=== PATIENT | male | born 1975 | race Two or more races ===

== ENCOUNTER 2020-04-18 16:51 | Outpatient (REF) | payer OTHER, SELFPAY ==
[2020-04-18 17:34] LABS: MANUAL DIFF FLAG NO
[2020-04-18 17:45] LABS: Basophils Percent Auto 0.5 % (0-2); Eosinophils Absolute Auto 0.3 X10*3/uL (0.0-0.4); Eosinophils Percent Auto 4.4 % (0-4); Hematocrit 41.3 % (42-52); Hemoglobin 13.2 g/dl (14.0-18.0); Imm Gran Abs Auto 0.01 X10*3/uL (0.00-0.03); Imm Gran Pct Auto 0.2 % (0.0-0.4); Lymphocytes Absolute Auto 1.4 X10*3/uL (1.2-4.9); Lymphocytes Percent Auto 24.8 % (20-40); Mean Corpuscular Volume 87.7 fL (80-98); Mean Platelet Volume 10.4 fL (9.4-12.4); Monocytes Absolute Auto 0.5 X10*3/uL (0.1-1.2); Monocytes Percent Auto 9.4 % (2-11); Neutrophils Absolute Auto 3.4 X10*3/uL (2.0-8.3); Neutrophils Percent Auto 60.7 % (45-73); Platelet Count 226 X10*3/uL (160-400); Red Blood Count 4.71 X10*6/uL (4.60-5.80); Red Cell Distribution Width 12.7 % (11.0-16.0); White Blood Count 5.6 X10*3/uL (4.8-10.8)
[2020-04-18 18:02] LABS: Estimated Average Glucose 174 mg/dL; Hemoglobin A1c % 7.7 %
[2020-04-18 18:11] LABS: Alanine Aminotransferase 27 U/L (0-40); Albumin Level 4.1 g/dL (3.5-5.0); Alkaline Phosphatase 50 U/L (39-117); Anion Gap 13 (12-20); Aspartate Amino Transferase 25 U/L (5-37); Bilirubin Total 0.5 mg/dL (0.0-1.0); Blood Urea Nitrogen 9 mg/dL (9-16); Calcium 8.8 mg/dL (8.4-10.2); Carbon Dioxide 25 mmol/L (22-29); Chloride 103 mmol/L (96-108); Estimated Glomerular Filt Rate 56; Glucose Random 166 mg/dL (60-115); Potassium 4.2 mmol/l (3.3-5.1); Sodium 137 mmol/L (135-145); Total Protein 7.2 g/dL (6.5-8.0)
[2020-04-18 18:12] LABS: B Type Natriuretic Peptide 228 pg/mL (<100)
[2020-04-21 13:52] LABS: Alpha 1 Anti-trypsin 133 mg/dL (83-199)
== END 2020-04-18 16:52 | disposition home or self-care (01) ==
LOC: HO.LAB 16:51
PROVIDERS: PCP Internal Medicine; Visit Provider Internal Medicine
DX: J45.41 Moderate persistent asthma with (acute) exacerbation (principal); R73.03 Prediabetes; I42.9 Cardiomyopathy, unspecified; G47.33 Obstructive sleep apnea (adult) (pediatric); R05 Cough
CPT/HCPCS: 36415; 80053; 82103; 83036; 83880; 85025

== ENCOUNTER 2020-05-22 15:30 | Outpatient (REF) | payer OTHER, SELFPAY ==
--- NOTE | 2020-05-22 16:11 | XR_ITS ---
EXAMINATION: XR CHEST CLINICAL INFORMATION: Bronchitis COMPARISON: None TECHNIQUE: 2 views of the chest were obtained. FINDINGS: No significant abnormality is noted involving the heart, lungs, mediastinum, bony thorax or soft tissues. XR/XR chest 2V IMPRESSION: Unremarkable chest examination.
== END 2020-05-22 15:31 | disposition home or self-care (01) ==
LOC: HO.XRAY 15:30
PROVIDERS: PCP Internal Medicine; Visit Provider Internal Medicine
DX: G47.33 Obstructive sleep apnea (adult) (pediatric) (principal); J40 Bronchitis, not specified as acute or chronic; Z99.89 Dependence on other enabling machines and devices
CPT/HCPCS: 71046; 99202

== ENCOUNTER 2020-06-01 11:43 | Outpatient (REF) | payer OTHER, SELFPAY ==
[2020-06-01 13:10] LABS: MANUAL DIFF FLAG NO
[2020-06-01 13:37] LABS: Basophils Absolute Auto 0.1 X10*3/uL (0.0-0.2); Basophils Percent Auto 0.7 % (0-2); Eosinophils Absolute Auto 0.2 X10*3/uL (0.0-0.4); Eosinophils Percent Auto 2.4 % (0-4); Hemoglobin 13.1 g/dl (14.0-18.0); Imm Gran Abs Auto 0.03 X10*3/uL (0.00-0.03); Imm Gran Pct Auto 0.4 % (0.0-0.4); Lymphocytes Percent Auto 27.3 % (20-40); Mean Corpuscular HGB Conc 32.8 g/dl (31.0-36.0); Mean Corpuscular Hemoglobin 28.4 pg (27.0-33.0); Mean Corpuscular Volume 86.8 fL (80-98); Mean Platelet Volume 10.8 fL (9.4-12.4); Monocytes Absolute Auto 0.8 X10*3/uL (0.1-1.2); Monocytes Percent Auto 10.9 % (2-11); Neutrophils Absolute Auto 4.3 X10*3/uL (2.0-8.3); Neutrophils Percent Auto 58.3 % (45-73); Platelet Count 290 X10*3/uL (160-400); Red Blood Count 4.61 X10*6/uL (4.60-5.80); Red Cell Distribution Width 14.5 % (11.0-16.0); White Blood Count 7.4 X10*3/uL (4.8-10.8)
[2020-06-01 13:41] LABS: Alanine Aminotransferase 29 U/L (0-40); Albumin Level 4.4 g/dL (3.5-5.0); Alkaline Phosphatase 45 U/L (39-117); Anion Gap 14 (12-20); Aspartate Amino Transferase 22 U/L (5-37); Bilirubin Total 0.4 mg/dL (0.0-1.0); Blood Urea Nitrogen 12 mg/dL (9-16); Calcium 9.2 mg/dL (8.4-10.2); Carbon Dioxide 27 mmol/L (22-29); Chloride 102 mmol/L (96-108); Estimated Glomerular Filt Rate > 60; Glucose Random 126 mg/dL (60-115); Potassium 4.2 mmol/l (3.3-5.1); Sodium 139 mmol/L (135-145); Total Protein 7.5 g/dL (6.5-8.0)
[2020-06-01 13:43] LABS: Creatinine Urine 348.88 mg/dL; Microalbum/Creatinine Ratio Ur 25.5 ug/mg cr
[2020-06-01 13:44] LABS: Estimated Average Glucose 177 mg/dL; Hemoglobin A1c % 7.8 %
== END 2020-06-01 11:44 | disposition home or self-care (01) ==
LOC: HO.LAB 11:43
PROVIDERS: PCP Internal Medicine; Visit Provider Internal Medicine
DX: E11.22 Type 2 diabetes mellitus with diabetic chronic kidney disease (principal); N18.9 Chronic kidney disease, unspecified; I42.9 Cardiomyopathy, unspecified
CPT/HCPCS: 36415; 80053; 82043; 83036; 85025

== ENCOUNTER → 2020-06-14 10:42 | Outpatient (BNVA) | payer OTHER, SELFPAY | PROVIDERS: PCP Internal Medicine; Visit Provider Surgery | DX: K43.2 Incisional hernia without obstruction or gangrene (principal) | CPT/HCPCS: 99202 ==

== ENCOUNTER → 2020-06-18 15:12 | Outpatient (BNVA) | payer OTHER, SELFPAY | PROVIDERS: PCP Internal Medicine; Visit Provider Internal Medicine Cardiovascular Disease | DX: Z01.810 Encounter for preprocedural cardiovascular examination (principal); I42.8 Other cardiomyopathies; I50.9 Heart failure, unspecified; K46.9 Unspecified abdominal hernia without obstruction or gangrene; G47.33 Obstructive sleep apnea (adult) (pediatric); Z79.899 Other long term (current) drug therapy; Z99.89 Dependence on other enabling machines and devices | CPT/HCPCS: 93005; 99212 ==

== ENCOUNTER 2020-12-29 06:56 | Emergency (ER) | payer OTHER, SELFPAY ==
--- NOTE | ~2020-12-29 | XR_ITS ---
EXAMINATION: XR RIBS, LEFT CLINICAL INFORMATION: Pain COMPARISON: No prior exam available. TECHNIQUE: Chest frontal, 4 left rib obliques FINDINGS: RIBS: Skeletal structures are normal. LUNGS AND SUDHEER: Both lungs are clear. PLEURA: Normal. Costophrenic angles are sharp, no pneumothorax. HEART: The heart is normal in size. MEDIASTINUM: The mediastinum is within normal limits.. XR/XR ribs LT min 3V w CXR1V IMPRESSION: 1. No radiographic evidence of rib fracture. 2. No radiographic evidence of acute cardiopulmonary disease.
[2020-12-29 07:02] VITALS: BP 151/90; PULSE 102; RESP 18; TEMP 36.6; O2SAT 98; BMI 34.9
[2020-12-29 07:53] VITALS: BP 143/92; PULSE 102; RESP 20; TEMP 36.7; O2SAT 99
--- NOTE | 2020-12-29 08:09 | ED_ITS ---
HPI - General Adult General Chief complaint: General Medical Stated complaint: Rib pain Time Seen by Provider: 12/29/20 08:09 Source: patient Mode of arrival: ambulatory Limitations: no limitations History of Present Illness HPI narrative: 45-year-old male came in with left-sided chest wall pain, patient was playing and sliding on no water and had his left side of his chest about week ago, patient has been having left-sided chest wall pain with movement and taking a deep breath. No light headedness, no shortness of breath. Related Data Home Medications Medication Instructions Recorded Confirmed albuterol sulfate 90 mcg/actuation 2 puff INHALATION Q6H PRN 05/22/20 08/22/20 aerosol inhaler carvedilol 25 mg tablet 37.5 mg PO BID tab 05/22/20 08/22/20 fluticasone propionate 110 1 puff INHALATION BID 05/22/20 08/22/20 mcg/actuation HFA aerosol inhaler furosemide 40 mg tablet 40 mg PO DAILY 05/22/20 08/22/20 omeprazole 20 mg capsule,delayed 20 mg PO DAILY 05/22/20 08/22/20 release aspirin 81 mg tablet,delayed 81 mg PO DAILY 06/18/20 08/22/20 release prednisone 20 mg tablet 20 mg PO DAILY PRN tab 06/18/20 06/18/20 ipratropium-albuterol ml INHALATION 08/22/20 montelukast 1 tab PO DAILY 08/22/20 08/22/20 spironolactone 1 tab PO DAILY 08/22/20 08/22/20 Previous Rx's Medication Instructions Recorded ivabradine 5 mg tablet 5 mg PO BID #60 tab 06/18/20 empagliflozin 10 mg tablet 10 mg PO DAILY #30 tab 09/05/20 sacubitril 49 mg-valsartan 51 mg 1 tab PO BID 90 Days #180 tab 10/31/20 tablet Allergies Allergy/AdvReac Type Severity Reaction Status Date / Time No Known Allergies Allergy Verified 08/22/20 12:08 Review of Systems Review of Systems: All other systems are reviewed and are negative Constitutional: Reports as per HPI and Reports no additional constitutional complaints Eyes: Reports as per HPI and Reports no additional eye complaints Reports system reviewed and no additional complaints, except as documented Cardiovascular: Reports as per HPI and Reports no additional cardiovascular complaints Respiratory: Reports as per HPI and Reports no additional respiratory complaints Gastrointestinal: Reports as per HPI and Reports no additional gastrointestinal complaints Genitourinary: Reports no additional female genitourinary complaints Musculoskeletal: Reports no additional musculoskeletal complaints Skin/Breast: Reports system reviewed and no additional complaints, except as docu Psychiatric: Reports no additional psychiatric complaints Endocrine: Reports no additional endocrine complaints Hematologic/Lymphatic: Reports no additional hematologic/lymphatic complaints Allergic/Immunologic: Reports no additional allergic/immunologic complaints Reports system reviewed and no additional complaints, except as documented and Reports Abnormal speech present [facility] Past Medical History Medical History Anxiety Asthma Bronchitis Cardiomyopathy CHF (congestive heart failure) GERD (gastroesophageal reflux disease) History of pneumonia Incisional hernia ARCELIA on CPAP PTSD (post-traumatic stress disorder) Surgical History History of esophagogastroduodenoscopy (EGD) History of laparoscopic appendectomy History of umbilical hernia repair Hx of endoscopy Family History Family History Father Diabetes CVD (cardiovascular disease) HTN (hypertension) Mother Diabetes Social History Social History Are you a primary ambulatory care coordinator to a significant other at home: No Advance Directives: Yes Advance Directives Information Provided: No Advance Directives on File: No Physical Exam Vital Signs: Vital Signs: Last Vital Signs Temp 98.0 F 12/29/20 07:53 Pulse 102 H 12/29/20 07:53 Resp 20 12/29/20 07:53 BP 143/92 H 12/29/20 07:53 Pulse Ox 99 12/29/20 07:53 Body Mass Index 34.9 Vital signs have been reviewed as appeared to be correct. Blood pressure elevated. Heart rate slightly elevated. Respiration rate normal. Temperature normal. Oxygen saturation normal. Appearance: Alert. Oriented X3. No acute distress. Head: Normal external exam. Normocephalic. Atraumatic. No Vazquez signs noted. No raccoon eyes noted Eyes: PERRLA. EOMI. Conjunctiva and sclera normal. Eyelids normal. ENT: TM's Normal. Pharynx normal. Uvula midline. Moist mucous membranes. No trismus noted. No drooling noted. No muffled voice noted. Neck: Normal inspection. Neck supple. FROM. No adenopathy. Thyroid Normal. No meningeal signs. No neck mass noted. CVS: Normal heart rate and rhythm. Heart sound normal. No murmurs noted. Pulses normal throughout. Respiratory: No respiratory distress. Painless inspiration. Breath sounds normal. No wheezes/rales/rhonchi noted. Point of tenderness which is reproducible at the mid axillary line over 9th, 10th, 11th rib. No step-off or deformity.. No accessory muscle usage noted or decreased air movement noted. Abdomen: Soft and nontender. Bowel sounds normal in all 4 quadrants. No distention noted. No organomegaly noted. No visible injury noted. Back: No CVA tenderness. Full range of motion noted. Skin: Skin warm and dry. Normal skin color. Normal skin turgor. No rashes/lesions/lacerations noted. Extremities: No lower extremity edema. Extremities exhibit normal range of motion. Extremities nontender. Neuro: Oriented X 3. No motor deficit. No sensory deficit. Reflexes normal. Course Course Course Narrative: Assessment and plan. 45-year-old male with left-sided chest wall pain after hurting his left chest week ago. Chest x-ray showing no fracture or pneumothorax. Physical exam and chest x-ray are more consistent with muscular/rib contusion. As recommended to the patient to use NSAIDs for pain control. Medical Decision Making Imaging Data Chest x-ray: Radiologist's impression: 1. No radiographic evidence of rib fracture. 2. No radiographic evidence of acute cardiopulmonary disease. Discharge Plan Discharge Prescriptions: No Action Jardiance 10 mg tablet 10 mg PO DAILY Qty: 30 RF: 5 Entresto 49-51 mg tablet 1 tab PO BID 90 Days Qty: 180 RF: 1 ipratropium-albuterol 0.5 mg-3 mg(2.5 mg base)/3 mL solution for nebulization inhalation RF: 0 spironolactone 25 mg tablet 1 tab PO DAILY RF: 0 montelukast 10 mg tablet 1 tab PO DAILY RF: 0 carvedilol 25 mg tablet 37.5 mg PO BID RF: 0 furosemide [Lasix] 40 mg tablet 40 mg PO DAILY RF: 0 albuterol sulfate [ProAir HFA] 90 mcg/actuation HFA aerosol inhaler 2 puff inhalation Q6H PRN (Reason: Wheezing) RF: 0 Flovent HFA 110 mcg/actuation HFA aerosol inhaler 1 puff inhalation BID RF: 0 omeprazole 20 mg capsule,delayed release(DR/EC) 20 mg PO DAILY RF: 0 prednisone 20 mg tablet 20 mg PO DAILY PRN (Reason: Vertigo) RF: 0 aspirin [Adult Low Dose Aspirin] 81 mg tablet,delayed release (DR/EC) 81 mg PO DAILY RF: 0 Corlanor 5 mg tablet 5 mg PO BID Qty: 60 RF: 1
== END 2020-12-29 08:25 | disposition home or self-care (01) ==
PROVIDERS: Emergency Provider Emergency Medicine; PCP Internal Medicine
DX: S20.212A Contusion of left front wall of thorax, initial encounter (principal); I50.9 Heart failure, unspecified; J45.909 Unspecified asthma, uncomplicated; Z79.899 Other long term (current) drug therapy; X58.XXXA Exposure to other specified factors, initial encounter; Y93.9 Activity, unspecified; Y92.9 Unspecified place or not applicable; Y99.9 Unspecified external cause status
CPT/HCPCS: 71101; 99283; 99284

== ENCOUNTER → 2021-01-04 08:28 | Outpatient (BNVA) | payer SELFPAY | PROVIDERS: PCP Internal Medicine; Visit Provider Internal Medicine | DX: Z02.79 Encounter for issue of other medical certificate (principal) ==

== ENCOUNTER → 2021-01-28 15:00 | Outpatient (BNVA) | payer OTHER, SELFPAY | PROVIDERS: PCP Internal Medicine; Referring Provider Internal Medicine; Visit Provider Surgery | DX: K43.2 Incisional hernia without obstruction or gangrene (principal); I42.9 Cardiomyopathy, unspecified | CPT/HCPCS: 99202; 99212 ==

== ENCOUNTER → 2021-02-13 13:09 | Outpatient (BNVA) | payer OTHER, SELFPAY | PROVIDERS: Referring Provider Internal Medicine; Visit Provider Nurse Practitioner Family | DX: Z01.810 Encounter for preprocedural cardiovascular examination (principal); I42.9 Cardiomyopathy, unspecified; I50.9 Heart failure, unspecified; I35.0 Nonrheumatic aortic (valve) stenosis; G47.33 Obstructive sleep apnea (adult) (pediatric); R73.03 Prediabetes; Z99.89 Dependence on other enabling machines and devices; Z79.4 Long term (current) use of insulin; Z79.899 Other long term (current) drug therapy | CPT/HCPCS: 93005; 99212 ==

== ENCOUNTER → 2021-02-15 07:22 | Outpatient (REF) | payer OTHER, SELFPAY ==
--- NOTE | 2021-02-15 07:29 | CA_ITS ---
Transthoracic Echocardiogram Patient (Last, First, Middle): Pavan Quiroz, Gender: Male Date of : 1975 Age: 45 Procedure Date: 02/15/2021 Procedure Type: Transthoracic Echocardiogram Location: OP Height: 182.88 cm Weight: 117.94 kg BSA: 2.38 m2 Heart Rate: bpm BP: 130 / 82 mmHg Boat Joiner: LIBBY Referring MD: Michelle Blount RESPIRATORY MANAGER-Baljit Symptoms: I42.9 - Cardiomyopathy, unspecified Study Quality: Fair ECG Rhythm: Sinus Conclusions: - Moderately increased left ventricular cavity size. There is moderately increased left ventricular wall thickness. The left ventricular systolic function is moderately decreased. The visually estimated ejection fraction is between 30-35%. - Normal right ventricular cavity size and systolic function. Findings Left Ventricle Moderately increased left ventricular cavity size. There is moderately increased left ventricular wall thickness. The left ventricular systolic function is moderately decreased. The visually estimated ejection fraction is between 30-35%. There is moderate global hypokinesis. Abnormal diastolic function is noted. Spectral Doppler is indicative of an impaired relaxation filling pattern. E/E prime ratio is <8, consistent with normal filling pressures. Right Ventricle Normal right ventricular cavity size and systolic function. Atria The left atrium is moderately dilated. Aortic Valve Normal aortic valve structure and function. There is no aortic valve stenosis. There is no aortic valve regurgitation. Mitral Valve The mitral valve appears normal. There is mild mitral valve regurgitation. There is no mitral valve stenosis. Pulmonic Valve Normal pulmonic valve structure and function. There is trace pulmonic valve regurgitation. Tricuspid Valve Normal tricuspid valve structure and function. There is trace tricuspid valve regurgitation. Tricuspid regurgitation envelope is inadequate for calculation of right ventricular systolic pressure. Normal right atrial pressure. Great Vessels All visible segments of the aorta are normal in size. The visualized portions of the pulmonary artery and branches are normal. Venous The inferior vena cava is normal in size and collapses greater than 50% with inspiration. Pericardium/Pleural There is no evidence of pericardial effusion. Prior Study Comparison No significant change compared to prior study dated: 03/13/2020. Measurements 2D Linear Measurements IVSd: 1.36 0.6-0.9/0.6-1.0 cm LVIDd: 6.33 3.9-5.3/4.2-5.9 cm LVIDd Index: 2.66 2.4-3.2/2.2-3.1 cm/m2 LVIDs: 5.14 2.0-3.6 cm LVPWd: 1.36 0.7-1.1 cm Ao Root: 3.80 2.1-3.5 cm LA Diam: 4.60 2.7-3.8/3.0-4.0 cm LAIDs Index: 1.93 1.5-2.3 cm/m2 LV Mass: 507.08 67-162/88-224 g LV Mass Index: 213.06 43-95/49-115 g/m2 LVOT Diam: 2.60 3.0+(-)1.3 cm 2D Systolic Function EF 4C: 37.30 >55% EF 2C: 19.90 >55% EF BiP: 32.40 >55% Mitral Valve MV Pk E: 0.53 MV PK A: 0.75 MV Decel Time: 95.00 E/A: 0.70 E'Lateral: 6.74 E'Medial: 8.38 E/E' Med: 6.30 E/E' Lat: 7.90 PHT: 28.00 MVA PHT: 7.86 Decel Burt: 5.59 Aortic Valve AoV Pk Nik: 1.25 AoV Mn Nik: 0.90 AoV VTI: 0.23 AoV Pk Grad: 6.00 Aov Mn Grad: 4.00 HENRIETTA Cont.VTI: 3.49 LVOT LVOT Pk Nik: 0.91 LVOT Mn Nik: 0.66 LVOT VTI: 0.15 LVOT Pk Grad: 3.00 LVOT Mn Grad: 2.00 LVOT Diam: 2.60 LVOT Area: 5.31 Diastolic Function MV Pk E: 0.53 MV Pk A: 0.75 E/A: 0.70 E'Medial: 8.38 E/E' Med: 6.30 E' Laterial: 6.74 E/E' Lat: 7.90 Right Ventricle TAPSE (mm): 18.00 Tricuspid Valve TR Pk Nik: 1.63 TR Pk Grad: 11.00 RA Press: 3.00 Great Vessels Aorta Ao Root-2D: 3.80 2.0-3.7 cm Pulmonary Valve PV Pk Nik: 1.09 Peak PV Grad: 5.00 Updated in Other Vendor System with Status of Final Eric Woodard MD electronically signed on 02/15/2021 10:15:46 PM with status of Final
[2021-02-15 08:07] LABS: Hematocrit 37.2 % (42-52); Hemoglobin 11.8 g/dl (14.0-18.0); Mean Corpuscular HGB Conc 31.7 g/dl (31.0-36.0); Mean Corpuscular Hemoglobin 27.8 pg (27.0-33.0); Mean Corpuscular Volume 87.5 fL (80-98); Mean Platelet Volume 10.2 fL (9.4-12.4); Platelet Count 288 X10*3/uL (160-400); Red Blood Count 4.25 X10*6/uL (4.60-5.80); Red Cell Distribution Width 14.5 % (11.0-16.0); White Blood Count 8.4 X10*3/uL (4.8-10.8)
[2021-02-15 08:13] LABS: INTERNATIONAL NORM RATIO 0.9 (0.9-1.1)
[2021-02-15 08:26] LABS: Anion Gap 14 (12-20); Blood Urea Nitrogen 19 mg/dL (9-16); Calcium 9.4 mg/dL (8.4-10.2); Carbon Dioxide 23 mmol/L (22-29); Chloride 105 mmol/L (96-108); Estimated Glomerular Filt Rate 58; Glucose Random 168 mg/dL (60-115); Potassium 3.8 mmol/L (3.3-5.1); Sodium 138 mmol/L (135-145)
[2021-02-15 08:28] LABS: B Type Natriuretic Peptide 23 pg/mL (<100)
== END ==
LOC: HO.CARD 07:22
PROVIDERS: Internal Medicine Cardiovascular Disease; PCP Internal Medicine; Visit Provider Nurse Practitioner Family
DX: Z01.810 Encounter for preprocedural cardiovascular examination (principal); I42.9 Cardiomyopathy, unspecified; I50.9 Heart failure, unspecified
CPT/HCPCS: 36415; 80048; 83880; 85027; 85610; 93306

== ENCOUNTER 2021-02-19 06:00 | Day surgery (SDC) | payer OTHER, SELFPAY ==
[2021-02-13 10:06] VITALS: BMI 35.0
[2021-02-19] VITALS (16 sets, daily range): BP systolic 97–148; BP diastolic 46–84; PULSE 67–102; RESP 17–21; TEMP 36.2–36.8; O2SAT 93–100
[2021-02-19 06:15] LABS: Glucose, Whole Blood 162 mg/dL (60-115)
[2021-02-19] MEDS: Lactated Ringers 1,000 ML 100 ML IVCONT (06:30)
--- NOTE | 2021-02-19 07:20 | PC.NURSE ---
dr traore aware pt took asa 81mg po today
--- NOTE | 2021-02-19 07:24 | MHC.SHP ---
Pre-Procedural Eval Section A Date of Service: 02/19/21 Section B Chief Complaint: Incisional hernia Allergies: Allergies Allergy/AdvReac Type Severity Reaction Status Date / Time No Known Allergies Allergy Verified 02/13/21 13:23 Plan I have reviewed the history and physical and performed a pertinent physical examination on my patient. No changes have occurred unless specified.
--- NOTE | 2021-02-19 08:41 | W.PM.OPN ---
Operative Note Operative Note Date of Service: 02/19/21 Narrative: Preop Diagnosis: Recurrent incisional hernia Postop diagnosis: Multiple and recurrent incisional hernias Procedure: Repair of multiple recurrent incisional hernias x4 with large Ventralex mesh, extensive lysis of adhesions Surgeon: Hayden Baer MD guest services assistant: TRACY Call The patient is 45-year-old male who was seen in the office because of a recurrent hernia near the umbilicus. He had a previous laparotomy as a child and has had small incisional hernias in the past which have been repaired. Examination in the office showed a vague hernia at the level umbilicus which was not reducible. In view of symptoms, he wanted to proceed with repair. He understood technique of the procedure as well as the risks, benefits, and alternatives. He was brought to the operating room placed supine on the table under general anesthesia via endotracheal tube. The abdomen is prepped and draped in the usual sterile fashion. A surgical time-out was done. The patient received cefazolin 2 g IV preoperatively. He I infiltrated the planned line of incision using lidocaine 1%. I then made a short incision on the skin 15 at the supraumbilical area down to the infraumbilical area along the previous laparotomy scar. This incision was carried down to the full-thickness skin subcutaneous fat with electrocautery until I was able to visualize the hernia contents. The hernia appeared to contain omental fat. I sharply dissected the sac off of the rest of the subcutaneous layer. I exposed the hernia contents using sharp dissection down to the fascial level. By doing so, I was able to actually visualize four hernias, each 1 by thick band of fascia. I proceeded to define each of these hernias until was able to clearly visualize all fascial margins. I then proceeded to free up all the adhesions from the hernia sac to the fascial edges individually. I then proceeded to divide the a intervening bands. I had to extend the skin incision a little bit inferiorly to allow good exposure of all these hernias. I connected all these for hernias therefore into 1 hernia. The entire defect measured about 4.5 cm in widest diameter. Frank clamps were applied on both sides of the fascia and at the apices. Thefascial edges appeared to appose well. I instrument the underside of the fascia and there was no evidence of any more adherent bowel loops or any adhesions It appeared that we had adequate margins underneath the fascia to apply our mesh. There was no visible bowel loop attached to any of the hernia contents which all consistent of omental fat. After making sure that we had cleared up the fascial edges with careful lysis of adhesions, I proceeded to position a large-sized Ventralex mesh to cover the entire defect. I applied for transfascial sutures using Prolene 2-0 to the Prolene side of the mesh on the 4 quadrants in a parachute fashion. I then tightened the transfascial sutures and there was note of good coverage of the entire defect. There was no evidence of any bowel loop between the mesh and the abdominal wall I then proceeded to reapposed the fascial layer with a running Maxon 1 stitch. The subcutaneous layer was reapposed with Dexon 3-0 interrupted sutures. Skin closure was achieved with Dexon 4-0 subcuticular running stitch. The incision was infiltrated with Marcaine 0.5% for postop analgesia. Dressings were applied and the procedure was completed The patient tolerated the procedure well. There were no complications noted. Initial and final counts of sponges and instruments were correct. Estimated blood loss about 20 cc. The patient was extubated without difficulty and transferred to the recovery room with stable vital signs.
--- NOTE | 2021-02-19 08:50 | PM.OP ---
Brief Operative Note Date of Service: 02/19/21 Pre-op diagnosis: Recurrent incisional hernia Post-op diagnosis: same Procedure: Multiple recurrent incisional hernias Implants: Mesh, Ventralex Surgeon: Hayden Baer MD Anesthesia: GETA Was an Unix Administrator used for this Procedure?: Yes Unix Administrator: Flor Call Estimated blood loss (mL): 20 Pathology: none sent Condition: stable Disposition: PACU
[2021-02-19] MEDS: oxyCODONE HCl Immed Release 5 MG TABLET 10 MG PO ×2 (09:25→20:28)
[2021-02-19 11:44] LABS: Glucose, Whole Blood 296 mg/dL (60-115)
[2021-02-19] MEDS: Montelukast Sodium 10 MG TABLET PO (12:22)
[2021-02-19] MEDS: Insulin Lispro 100 UNIT/ML 3 ML VIAL SUBCUT ×3 (12:23→20:26)
[2021-02-19] MEDS: Furosemide 40 MG TABLET PO (12:23)
[2021-02-19] MEDS: Omeprazole 20 MG CAPSULE.DR PO ×2 (12:23→20:26)
[2021-02-19] MEDS: 0.9 % Sodium Chloride 1,000 ML 80 ML IVCONT (12:23)
[2021-02-19] MEDS: Spironolactone 25 MG TABLET PO (12:23)
[2021-02-19] MEDS: Morphine Sulfate 2 MG/ML CARTRIDGE 4 MG IVPUSH ×3 (12:45→21:58)
--- NOTE | 2021-02-19 14:39 | PC.NURSE ---
Pt presented to floor at 11:30 with scant staining at bottom of dsg. at 1430 pt reported bleeding through dressing. sainginous drainage noted, reinforced with abd pad. will cont to monitor and assess
--- NOTE | 2021-02-19 16:13 | PM.EVENT ---
Event Note Date of Service: 02/19/21 Event Note: Patient seen postop He underwent repair of multiple recurrent incisional hernias earlier today Appears to have good pain control Stable vital signs Abdomen soft Dressings dry Continue pain management Likely DC home tomorrow morning Family updated
[2021-02-19 16:35] LABS: Glucose, Whole Blood 240 mg/dL (60-115)
[2021-02-19 20:22] LABS: Glucose, Whole Blood 203 mg/dL (60-115)
[2021-02-19] MEDS: carvediloL 12.5 MG TABLET 37.5 MG PO (20:26)
[2021-02-19] MEDS: Sacubitril/Valsartan 49/51 1 TAB TABLET PO (20:27)
[2021-02-19] MEDS: Zolpidem Tartrate 5 MG TABLET PO (23:40)
[2021-02-20] MEDS: 0.9 % Sodium Chloride 1,000 ML 80 ML IVCONT (00:08)
[2021-02-20] MEDS: Morphine Sulfate 2 MG/ML CARTRIDGE 4 MG IVPUSH ×5 (02:50→23:31)
[2021-02-20 04:00] VITALS: BP 141/77; PULSE 52; RESP 16; TEMP 36.6; O2SAT 99
[2021-02-20 07:37] LABS: Glucose, Whole Blood 139 mg/dL (60-115)
[2021-02-20] MEDS: Omeprazole 20 MG CAPSULE.DR PO (07:53)
[2021-02-20] MEDS: Furosemide 40 MG TABLET PO (07:53)
[2021-02-20] MEDS: carvediloL 12.5 MG TABLET 37.5 MG PO ×2 (07:53→21:33)
[2021-02-20] MEDS: Montelukast Sodium 10 MG TABLET PO (07:53)
[2021-02-20] MEDS: Spironolactone 25 MG TABLET PO (07:53)
[2021-02-20] MEDS: Sacubitril/Valsartan 49/51 1 TAB TABLET PO ×2 (07:53→21:34)
[2021-02-20 08:00] VITALS: BP 133/75; PULSE 79; RESP 18; TEMP 36.1; O2SAT 98
--- NOTE | 2021-02-20 08:59 | P.PNGS_ITS ---
Subjective Subjective Date of Service: 02/20/21 <Flor Call PA-C - Last Filed: 02/20/21 09:02> 02/20/21 <Hayden Baer MD - Last Filed: 02/20/21 10:14> Interval history: Having some difficulty with pain. OOB and ambulating. <Flor Call PA-C - Last Filed: 02/20/21 09:02> Physical Exam Vital Signs: Vital Signs: Last Vital Signs Temp 96.9 F 02/20/21 08:00 Pulse 79 02/20/21 08:00 Resp 18 02/20/21 08:00 BP 133/75 02/20/21 08:00 Pulse Ox 98 02/20/21 08:00 Body Mass Index 35.0 <RM Masterson Last Filed: 02/20/21 09:02> Const: General: comfortable, no acute distress and alert <Flor Call PA-C - Last Filed: 02/20/21 09:02> Orientation/consciousness: patient oriented x3 <Flor Call PA-C - Last Filed: 02/20/21 09:02> Resp: Effort & Inspection: normal respiratory effort <RM Masterson Last Filed: 02/20/21 09:02> GI: Inspection: Yes distended and Yes incision (dressing intact) <Flor Call PA-C - Last Filed: 02/20/21 09:02> Palpation (GI): Soft to palpation, Tenderness to palpation present (GI), no guarding and not rigid <Flor Call PA-C - Last Filed: 02/20/21 09:02> Percussion: Yes normal to percussion <RM Masterson Last Filed: 02/20/21 09:02> Skin: General skin exam: no rashes or lesions noted <RM Masterson Last Filed: 02/20/21 09:02> Neuro: General: patient oriented x3 <RM Masterson Last Filed: 02/20/21 09:02> Procedures Date of Service Date of Service: 02/20/21 <Flor Call PA-C - Last Filed: 02/20/21 09:02> Progress Note: A&P Assessment and plan (1) Incisional hernia: Status: Acute <Flor Call PA-C - Last Filed: 02/20/21 09:02> Assessment and Plan: No events overnight Describes incisional pain He looks well overall Dressings dry Abdomen soft Likely to be discharged today once with better pain control Seen and examined independently - agree with TRACY Call <Hayden Baer MD - Last Filed: 02/20/21 10:14> (2) CHF (congestive heart failure): Status: Acute <Flor Call PA-C - Last Filed: 02/20/21 09:02> (3) Cardiomyopathy: Status: Acute <Flor Call PA-C - Last Filed: 02/20/21 09:02> (4) Asthma: Status: Acute <Flor Call PA-C - Last Filed: 02/20/21 09:02> Assessment and Plan: 45 year old male admitted s/p incisional hernia repair. VSS. Abd exam benign. DOing ok post operatively. Will reassess later today. If pain better controlled, stable for d/c to homE. Abdominal binder ordered. <Flor Call PA-C - Last Filed: 02/20/21 09:02> Fall Risk Details Current Medications: Current Medications Generic Name Dose Route Start Last Admin Trade Name Freq PRN Reason Stop Dose Admin Acetaminophen 650 mg 02/19/21 08:55 Acetaminophen 325 Mg Tablet PO Q6H PRN Pain, Mild (Pain Scale 1-3) Albuterol Sulfate 2 puff 02/19/21 08:59 Albuterol Sulfate 90 Mcg 8 Gm Inhaler INHALE Q6H PRN Wheezing Albuterol/Ipratropium 3 ml 02/19/21 08:59 Albuterol/Iprat 2.5/0.5mg 3 Ml Ampul.Neb INHALE Q4H PRN Wheezing Carvedilol 37.5 mg 02/19/21 09:00 02/20/21 07:53 Carvedilol 12.5 Mg Tablet PO 37.5 mg BID JOCELYN Administration Protocol Dextrose 25 gm 02/19/21 08:55 Dextrose 50 % 25 Gm/50 Ml Vial IVPUSH Q15M PRN per Hypoglycemia Standing Ord. Protocol Docusate Sodium 100 mg 02/19/21 08:55 Docusate Sodium 100 Mg Capsule PO DAILY PRN Constipation Fluticasone Propionate 1 puff 02/19/21 20:00 02/20/21 07:36 Fluticasone Propionate 100 Mcg Blst.W.Dev INHALE Not Given RBID [facility] Furosemide 40 mg 02/19/21 09:00 02/20/21 07:53 Furosemide 40 Mg Tablet PO 40 mg DAILY JOCELYN Administration Protocol Glucose 15 gm 02/19/21 08:55 Glucose Gel 15 Gm Gel..Gram. PO Q15M PRN per Hypoglycemia Standing Ord. Protocol Insulin Human Lispro 0 unit 02/19/21 11:30 02/20/21 07:28 Insulin Lispro 100 Unit/Ml 3 Ml Vial SUBCUT Not Given QIDACHS [facility] Protocol Ketorolac Tromethamine 15 mg 02/19/21 08:55 Ketorolac Tromethamine 15 Mg/Ml Vial IVPUSH Q6H PRN abdominal pain Montelukast Sodium 10 mg 02/19/21 09:00 02/20/21 07:53 Montelukast Sodium 10 Mg Tablet PO 10 mg DAILY [facility] Administration Morphine Sulfate 4 mg 02/19/21 08:55 02/20/21 07:50 Morphine Sulfate 2 Mg/Ml Cartridge IVPUSH 4 mg Q4H PRN Administration Pain, Severe (Pain Scale 7-10) Protocol Omeprazole 20 mg 02/19/21 09:00 02/20/21 07:53 Omeprazole 20 Mg Capsule.Dr PO 20 mg DAILY JOCELYN Administration Ondansetron HCl 4 mg 02/19/21 08:55 Ondansetron Hcl 4 Mg/2 Ml Vial IVPUSH Q8H PRN Nausea and Vomiting Oxycodone HCl 5 mg 02/19/21 08:55 Oxycodone Hcl Immed Release 5 Mg Tablet PO Q4H PRN Pain, Moderate (Pain Scale 4-6 Oxycodone HCl 10 mg 02/19/21 08:55 02/19/21 20:28 Oxycodone Hcl Immed Release 5 Mg Tablet PO 10 mg Q4H PRN Administration Pain, Severe (Pain Scale 7-10) Sacubitril/Valsartan 1 tab 02/19/21 09:00 02/20/21 07:53 Sacubitril/Valsartan 49/51 1 Tab Tablet PO 1 tab BID JOCELYN Administration Protocol Sodium Chloride 3 ml 02/19/21 16:00 02/20/21 07:28 0.9 % Sodium Chloride Flush 3 Ml Syringe IVFLUSH Not Given QSHIFT JOCELYN Spironolactone 25 mg 02/19/21 09:00 02/20/21 07:53 Spironolactone 25 Mg Tablet PO 25 mg DAILY JOCELYN Administration Protocol <Flor Call PA-C - Last Filed: 02/20/21 09:02> Time Spent With Patient Time: Total time spent is greater than 50% in coordination of care (as documented) at patient's floor/unit and/or counseling patient: <Flor Call PA-C - Last Filed: 02/20/21 09:02> Time with patient: 15 - 24 minutes <RM Masterson Last Filed: 02/20/21 09:02> Quality Stroke Does the patient have a stroke diagnosis?: No <Flor Call PA-C - Last Filed: 02/20/21 09:02> VTE Prior VTE?: No <RM Masterson Last Filed: 02/20/21 09:02> VTE Risk Level:: Surgical - high <RM Masterson Last Filed: 02/20/21 09:02> VTE Device Contraindication: N/A - Device Ordered <RM Masterson Last Filed: 02/20/21 09:02> VTE Drug Contraindication: N/A - Med Ordered <RM Masterson Last Filed: 02/20/21 09:02>
--- NOTE | 2021-02-20 09:22 | HO.POSTANES ---
Post Anesthesia Evaluation Post Anesthesia Evaluation Vital Signs: Vital Signs Temp Pulse Resp BP Pulse Ox 02/20/21 08:00 96.9 F 79 18 133/75 98 02/20/21 04:00 97.9 F 52 16 141/77 H 99 02/19/21 23:38 97.1 F 80 18 140/71 H 99 Anesthesia: General Endotracheal-GETA Mental Status: Awake Pain Control: Satisfactory Nausea/Vomiting: None Hydration: Adequate Anesthesia-Related Issues: No Anes. Related Issues
[2021-02-20 11:09] LABS: Glucose, Whole Blood 220 mg/dL (60-115)
[2021-02-20 11:14] VITALS: BP 132/68; PULSE 65; RESP 19; TEMP 36.1; O2SAT 99
[2021-02-20] MEDS: oxyCODONE HCl Immed Release 5 MG TABLET 10 MG PO ×3 (11:22→22:21)
[2021-02-20] MEDS: Insulin Lispro 100 UNIT/ML 3 ML VIAL SUBCUT ×3 (11:32→21:34)
--- NOTE | 2021-02-20 12:51 | MHC.CM.PN ---
EMR REVIEWED, PT ADMITTED S/P INCISIONAL HERNIA REPAIR, CM MET W/PT WHO IS A&OX4, PT REPORTS HE LIVES W/ROOMMATE, IS INDEPENDENT W/ALL CARE, HAS CPAP AND NEBULIZER AT HOME, NO HOME SERVICES, PT VERIFIES PCP IS [facility], DOES NOT HAVE A HCP, PT PROVIDED EDUCATIONAL INFORMATION AND PT CURRENTLY DECLINING ASSISTANCE TO COMPLETE. D/C PLAN: HOME SELF-CARE, POSSIBLY TODAY, PT WILL SELF--ARRANGE TRANSPORT.
[2021-02-20] MEDS: 0.9 % Sodium Chloride Flush 3 ML SYRINGE IVFLUSH ×2 (14:57→21:36)
[2021-02-20 16:00] VITALS: BP 133/78; PULSE 82; RESP 18; TEMP 36.6; O2SAT 94
[2021-02-20 16:23] LABS: Glucose, Whole Blood 200 mg/dL (60-115)
[2021-02-20 20:00] VITALS: BP 128/95; PULSE 87; RESP 18; TEMP 36.7; O2SAT 96
[2021-02-20] MEDS: Docusate Sodium 100 MG CAPSULE PO (20:04)
[2021-02-20 20:11] LABS: Glucose, Whole Blood 168 mg/dL (60-115)
[2021-02-20] MEDS: Zolpidem Tartrate 5 MG TABLET PO (22:21)
[2021-02-20] MEDS: Acetaminophen 325 MG TABLET 650 MG PO (22:22)
[2021-02-20 23:47] VITALS: BP 138/81; PULSE 90; RESP 18; TEMP 36.1; O2SAT 98
[2021-02-21] MEDS: oxyCODONE HCl Immed Release 5 MG TABLET 10 MG PO ×2 (02:55→07:40)
[2021-02-21 04:00] VITALS: BP 129/70; PULSE 73; RESP 18; TEMP 36.6; O2SAT 96
[2021-02-21] MEDS: Morphine Sulfate 2 MG/ML CARTRIDGE 4 MG IVPUSH ×2 (04:03→08:26)
[2021-02-21] MEDS: Acetaminophen 325 MG TABLET 650 MG PO (06:37)
[2021-02-21 07:13] VITALS: BP 140/68; PULSE 80; RESP 17; TEMP 36.4; O2SAT 96
[2021-02-21] MEDS: Sacubitril/Valsartan 49/51 1 TAB TABLET PO (07:40)
[2021-02-21] MEDS: Omeprazole 20 MG CAPSULE.DR PO (07:40)
[2021-02-21] MEDS: Spironolactone 25 MG TABLET PO (07:40)
[2021-02-21] MEDS: carvediloL 12.5 MG TABLET 37.5 MG PO (07:40)
[2021-02-21] MEDS: Montelukast Sodium 10 MG TABLET PO (07:40)
[2021-02-21] MEDS: Furosemide 40 MG TABLET PO (07:41)
[2021-02-21] MEDS: 0.9 % Sodium Chloride Flush 3 ML SYRINGE IVFLUSH (07:42)
[2021-02-21 07:51] LABS: Glucose, Whole Blood 131 mg/dL (60-115)
--- NOTE | 2021-02-21 08:07 | P.PNGS_ITS ---
Subjective Subjective Date of Service: 02/21/21 Interval history: feels better incisional pain much improved has been ambulating good PO intake Physical Exam Vital Signs: Vital Signs: Last Vital Signs Temp 97.6 F 02/21/21 07:13 Pulse 80 02/21/21 07:13 Resp 17 02/21/21 07:13 BP 140/68 H 02/21/21 07:13 Pulse Ox 96 02/21/21 07:13 Body Mass Index 35.0 Const: Other: looks well General: comfortable and no acute distress Resp: Effort & Inspection: normal respiratory effort Cardio: Rate: regular rate GI: Other: obese, soft, incision dry, no pus, has some tape german, no cellulitis Procedures Date of Service Date of Service: 02/21/21 Progress Note: A&P Assessment and plan (1) Incisional hernia: Status: Acute Assessment and Plan: s/p repair, multiple incisional hernias, with mesh doing well incision clen and dry says he is ready to be discharged dc instructions given pain meds ffup in office Fall Risk Details Current Medications: Current Medications Generic Name Dose Route Start Last Admin Trade Name Freq PRN Reason Stop Dose Admin Acetaminophen 650 mg 02/19/21 08:55 02/21/21 06:37 Acetaminophen 325 Mg Tablet PO 650 mg Q6H PRN Administration Pain, Mild (Pain Scale 1-3) Albuterol Sulfate 2 puff 02/19/21 08:59 Albuterol Sulfate 90 Mcg 8 Gm Inhaler INHALE Q6H PRN Wheezing Albuterol/Ipratropium 3 ml 02/19/21 08:59 Albuterol/Iprat 2.5/0.5mg 3 Ml Ampul.Neb INHALE Q4H PRN Wheezing Carvedilol 37.5 mg 02/19/21 09:00 02/21/21 07:40 Carvedilol 12.5 Mg Tablet PO 37.5 mg BID JOCELYN Administration Protocol Dextrose 25 gm 02/19/21 08:55 Dextrose 50 % 25 Gm/50 Ml Vial IVPUSH Q15M PRN per Hypoglycemia Standing Ord. Protocol Docusate Sodium 100 mg 02/19/21 08:55 02/20/21 20:04 Docusate Sodium 100 Mg Capsule PO 100 mg DAILY PRN Administration Constipation Fluticasone Propionate 1 puff 02/19/21 20:00 02/21/21 07:57 Fluticasone Propionate 100 Mcg Blst.W.Dev INHALE Not Given RBID [facility] Furosemide 40 mg 02/19/21 09:00 02/21/21 07:41 Furosemide 40 Mg Tablet PO 40 mg DAILY JOCELYN Administration Protocol Glucose 15 gm 02/19/21 08:55 Glucose Gel 15 Gm Gel..Gram. PO Q15M PRN per Hypoglycemia Standing Ord. Protocol Insulin Human Lispro 0 unit 02/19/21 11:30 02/21/21 07:22 Insulin Lispro 100 Unit/Ml 3 Ml Vial SUBCUT Not Given QIDACHS [facility] Protocol Ketorolac Tromethamine 15 mg 02/19/21 08:55 Ketorolac Tromethamine 15 Mg/Ml Vial IVPUSH Q6H PRN abdominal pain Montelukast Sodium 10 mg 02/19/21 09:00 02/21/21 07:40 Montelukast Sodium 10 Mg Tablet PO 10 mg DAILY [facility] Administration Morphine Sulfate 4 mg 02/19/21 08:55 02/21/21 04:03 Morphine Sulfate 2 Mg/Ml Cartridge IVPUSH 4 mg Q4H PRN Administration Pain, Severe (Pain Scale 7-10) Protocol Omeprazole 20 mg 02/19/21 09:00 02/21/21 07:40 Omeprazole 20 Mg Capsule.Dr PO 20 mg DAILY [facility] Administration Ondansetron HCl 4 mg 02/19/21 08:55 Ondansetron Hcl 4 Mg/2 Ml Vial IVPUSH Q8H PRN Nausea and Vomiting Oxycodone HCl 5 mg 02/19/21 08:55 Oxycodone Hcl Immed Release 5 Mg Tablet PO Q4H PRN Pain, Moderate (Pain Scale 4-6 Oxycodone HCl 10 mg 02/19/21 08:55 02/21/21 07:40 Oxycodone Hcl Immed Release 5 Mg Tablet PO 10 mg Q4H PRN Administration Pain, Severe (Pain Scale 7-10) Sacubitril/Valsartan 1 tab 02/19/21 09:00 02/21/21 07:40 Sacubitril/Valsartan 49/51 1 Tab Tablet PO 1 tab BID [facility] Administration Protocol Sodium Chloride 3 ml 02/19/21 16:00 02/21/21 07:42 0.9 % Sodium Chloride Flush 3 Ml Syringe IVFLUSH 3 ml QSHIFT JOCELYN Administration Spironolactone 25 mg 02/19/21 09:00 02/21/21 07:40 Spironolactone 25 Mg Tablet PO 25 mg DAILY JOCELYN Administration Protocol Zolpidem Tartrate 5 mg 02/20/21 21:42 02/20/21 22:21 Zolpidem Tartrate 5 Mg Tablet PO 5 mg BEDTIME PRN Administration Insomnia Time Spent With Patient Time: Total time spent is greater than 50% in coordination of care (as documented) at patient's floor/unit and/or counseling patient: Time with patient: 15 - 24 minutes Quality Stroke Does the patient have a stroke diagnosis?: No VTE Prior VTE?: No VTE Risk Level:: Surgical - high VTE Device Contraindication: N/A - Device Ordered VTE Drug Contraindication: N/A - Med Ordered
--- NOTE | 2021-02-21 08:46 | MHC.CM.PN ---
PT DISCHARGING HOME SELF-CARE, PT REPORTS HE WILL SELF-ARRANGE TRANSPORT.
== END 2021-02-21 09:30 | disposition home or self-care (01) ==
LOC: HO.SSS 09:16 → HO.S3 13:14
PROVIDERS: PCP Internal Medicine; Visit Provider Surgery
PROC: (CPT 49565; principal; 2021-02-19 07:30)
DX: K43.2 Incisional hernia without obstruction or gangrene (principal); E11.9 Type 2 diabetes mellitus without complications; I50.9 Heart failure, unspecified; I42.9 Cardiomyopathy, unspecified; J45.909 Unspecified asthma, uncomplicated; Z79.84 Long term (current) use of oral hypoglycemic drugs
CPT/HCPCS: 49565; 49568; 82947; 99024; C1781; J0690; J1100; J1885; J2250; J2270; J2370; J2405; J3010

== ENCOUNTER → 2021-03-06 10:44 | Outpatient (BNVA) | payer OTHER, SELFPAY | PROVIDERS: PCP Internal Medicine; Referring Provider Internal Medicine; Visit Provider Surgery | DX: Z48.815 Encounter for surgical aftercare following surgery on the digestive system (principal); Z87.19 Personal history of other diseases of the digestive system | CPT/HCPCS: 99212 ==

== ENCOUNTER → 2021-04-04 16:08 | Outpatient (BNVA) | payer OTHER, SELFPAY | PROVIDERS: PCP Internal Medicine; Referring Provider Internal Medicine; Visit Provider Surgery | DX: K43.2 Incisional hernia without obstruction or gangrene (principal); K21.9 Gastro-esophageal reflux disease without esophagitis; R73.03 Prediabetes | CPT/HCPCS: 99212 ==

== ENCOUNTER 2021-05-23 14:17 | Outpatient (REF) | payer OTHER, SELFPAY ==
[2021-05-23 15:07] LABS: Influenza A PCR NEGATIVE (Negative); Influenza B PCR NEGATIVE (Negative); Resp Syncy Virus RNA Qual PCR NEGATIVE (Negative); SARS COV2 PCR INHOUSE NEGATIVE (Negative)
== END 2021-05-23 14:18 | disposition home or self-care (01) ==
LOC: HO.LNP 14:17
PROVIDERS: PCP Internal Medicine; Visit Provider Internal Medicine
DX: Z20.822 Contact with and (suspected) exposure to COVID-19 (principal)
CPT/HCPCS: 0241U

== ENCOUNTER → 2022-01-16 12:36 | Outpatient (BNVA) | payer OTHER, SELFPAY | PROVIDERS: PCP Internal Medicine; Visit Provider Internal Medicine Cardiovascular Disease | DX: Z01.810 Encounter for preprocedural cardiovascular examination (principal); I50.20 Unspecified systolic (congestive) heart failure | CPT/HCPCS: 93005; 99212 ==

== ENCOUNTER 2022-06-03 16:10 | Outpatient (REF) | payer OTHER, SELFPAY ==
[2022-06-03 16:32] LABS: MANUAL DIFF FLAG NO
[2022-06-03 17:28] LABS: Estimated Average Glucose 128 mg/dL; Hemoglobin A1c % 6.1 %
[2022-06-03 17:41] LABS: Alanine Aminotransferase 14 U/L (0-40); Albumin Level 4.4 g/dL (3.5-5.0); Alkaline Phosphatase 55 U/L (39-117); Anion Gap 12 (12-20); Aspartate Amino Transferase 13 U/L (5-37); Basophils Percent Auto 0.5 % (0-2); Bilirubin Total 0.4 mg/dL (0.0-1.0); Blood Urea Nitrogen 15 mg/dL (9-16); Calcium 9.8 mg/dL (8.4-10.2); Carbon Dioxide 27 mmol/L (22-29); Chloride 104 mmol/L (96-108); Cholesterol 251 mg/dL; Eosinophils Absolute Auto 0.2 X10*3/uL (0.0-0.4); Eosinophils Percent Auto 1.9 % (0-4); Estimated Glomerular Filt Rate 58; Glucose Random 139 mg/dL (60-115); Hematocrit 38.7 % (42.0-52.0); Hemoglobin 12.5 g/dl (14.0-18.0); Imm Gran Abs Auto 0.03 X10*3/uL (0.00-0.03); Imm Gran Pct Auto 0.3 % (0.0-0.4); Lymphocytes Absolute Auto 1.7 X10*3/uL (1.2-4.9); Lymphocytes Percent Auto 19.2 % (20-40); Mean Corpuscular HGB Conc 32.3 g/dl (31.0-36.0); Mean Corpuscular Hemoglobin 27.5 pg (27.0-33.0); Mean Corpuscular Volume 85.1 fL (80.0-98.0); Mean Platelet Volume 11.2 fL (9.4-12.4); Monocytes Absolute Auto 0.9 X10*3/uL (0.1-1.2); Monocytes Percent Auto 10.3 % (2-11); Neutrophils Absolute Auto 5.9 x10*3/uL (2.0-8.3); Neutrophils Percent Auto 67.8 % (45-73); Platelet Count 249 X10*3/uL (160-400); Potassium 4.4 mmol/L (3.3-5.1); Red Blood Count 4.55 X10*6/uL (4.60-5.80); Red Cell Distribution Width 13.6 % (11.0-16.0); Sodium 139 mmol/L (135-145); Total Protein 7.5 g/dL (6.5-8.0); White Blood Count 8.8 X10*3/uL (4.8-10.8)
== END 2022-06-03 16:11 | disposition home or self-care (01) ==
LOC: HO.LAB 16:10
PROVIDERS: PCP Internal Medicine; Visit Provider Internal Medicine
DX: I42.9 Cardiomyopathy, unspecified (principal); I50.9 Heart failure, unspecified; E11.9 Type 2 diabetes mellitus without complications; K21.9 Gastro-esophageal reflux disease without esophagitis; J45.909 Unspecified asthma, uncomplicated
CPT/HCPCS: 36415; 80053; 82465; 83036; 85025

== ENCOUNTER → 2022-06-30 10:57 | Outpatient (BNVA) | payer OTHER, SELFPAY | PROVIDERS: PCP Internal Medicine; Referring Provider Internal Medicine; Visit Provider Surgery | DX: K43.2 Incisional hernia without obstruction or gangrene (principal); I50.20 Unspecified systolic (congestive) heart failure; I42.9 Cardiomyopathy, unspecified; J45.909 Unspecified asthma, uncomplicated; G47.33 Obstructive sleep apnea (adult) (pediatric); F19.11 Other psychoactive substance abuse, in remission; Z87.19 Personal history of other diseases of the digestive system; Z99.89 Dependence on other enabling machines and devices | CPT/HCPCS: 99202 ==

== ENCOUNTER → 2023-05-07 14:18 | Outpatient (BNVA) | payer SELFPAY | PROVIDERS: PCP Internal Medicine; Visit Provider Physician Assistant Medical | DX: Z02.79 Encounter for issue of other medical certificate (principal) ==

== ENCOUNTER 2023-09-15 14:55 | Outpatient (AMB) | payer OTHER, SELFPAY ==
--- NOTE | 2023-09-15 15:14 | MHC.OFFVIS ---
Intake Vital Signs 09/15/23 15:16 Height 6 ft Weight 297 lb 9.985 oz BMI 40.4 BP 120/76 Blood Pressure Location Lt brachial Position Sitting Pulse 76 Intake Visit Reasons: 6 month follow up Intake Note: 6 month follow-up with ekg c/o some pain upper part of the chest Sec Reporting Consultant Required: No Allergies No Known Allergies Allergy (Verified 06/30/22 11:11) Medication List - Last Reconciled 09/15/23 by Chato Joy MD albuterol sulfate 90 mcg/actuation (ProAir HFA) 2 puffs inhalation Q6H PRN carvedilol (Coreg) 50 mg (2 x 25 mg) PO BID docusate sodium (Colace) 100 mg PO DAILY PRN empagliflozin (Jardiance) 10 mg PO DAILY 90 days fluticasone propionate 110 mcg/actuation (Flovent HFA) 1 puff inhalation BID furosemide (Lasix) 40 mg PO DAILY ipratropium-albuterol 0.5 mg-3 mg(2.5 mg base)/3 mL 3 mL inhalation Q4-6H PRN metformin ER 500 mg PO DAILY montelukast 10 mg PO DAILY omeprazole 40 mg PO DAILY sacubitril-valsartan 49-51 mg (Entresto) 1 tab PO BID 90 days spironolactone 25 mg PO DAILY HPI HPI Comments History of Present Illness Details Clarence comes after a long gap. He said he was incarcerated due to some domestic issues however while incarcerated he was getting all his medications and following release he was getting his prescriptions refilled. He also has been using his CPAP regularly. Unfortunately he was not able to undergo surgery for his ventral hernia, large. He said since being incarcerated he was not able to exercise and has gained about 40 lb. He is very upset about it. He denies any worsening heart failure symptoms. Denies any orthopnea, PND, leg edema. Has exertional shortness of breath but this he thinks is related to his weight. His blood pressures been well controlled. Denies any prolonged palpitation irregular heartbeat. He says he intermittently gets sharp left-sided chest pain which are not exertion related. [facility] Medical History Recurrent incisional hernia Pre-diabetes PTSD (post-traumatic stress disorder) History of pneumonia GERD (gastroesophageal reflux disease) Anxiety Incisional hernia Cardiomyopathy CHF (congestive heart failure) ARCELIA on CPAP Bronchitis Asthma Surgical History History of esophagogastroduodenoscopy (EGD) History of umbilical hernia repair History of laparoscopic appendectomy Family History Father Diabetes CVD (cardiovascular disease) HTN (hypertension) Mother Diabetes Social History Are you a primary hospice care transitions coordinator to a significant other at home: No Do you presently have visiting nurse or other home services: No Patient Tobacco Use Status: Never used Tobacco service: No Current occupational status: unemployed Review of Systems Const Denies chills, Denies fatigue, Denies fever(s), Denies frequent falls, Denies weakness, Denies weight gain and Denies weight loss ENT Denies dizziness Card Denies chest pain, Denies leg edema, Denies lightheadedness, Denies palpitations, Denies dyspnea, Denies dyspnea on exertion, Denies orthopnea and Denies other (loss of consciousness) Resp Denies cough, Denies dyspnea and Denies dyspnea on exertion GI Denies hematochezia and Denies change in stool character Musc Denies abnormal gait, Denies muscle weakness, Denies numbness, Denies radiating pain into limb and Denies tingling Neuro Denies abnormal gait, Denies dizziness, Denies frequent falls, Denies numbness, Denies tingling and Denies weakness Endo Denies fatigue and Denies palpitations Physical Exam Vital Signs: Last Vital Signs Pulse 76 09/15/23 15:16 BP 120/76 09/15/23 15:16 BMI result Body Mass Index 40.4 Const General: cooperative, healthy appearing, comfortable and no acute distress Orientation/consciousness: patient oriented x3 Neck Neck: Yes normal visual inspection and Yes no JVD Carotids: normal carotid upstroke Resp Effort & Inspection: normal respiratory effort Auscultation: clear to auscultation bilaterally, no crackles, no rales, no rhonchi and no wheezes Cardio Jugular venous distension: no JVD Palpation: abnormal PMI displaced PMI Rate: regular rate Rhythm: regular rhythm Heart sounds: S1 normal heart sound present, S2 normal heart sound present, no gallops, no murmurs and no rubs Peripheral pulses: Peripheral pulses 2+ throughout GI Inspection: Yes obesity and Yes visible herniation (Large) Auscultation: normal bowel sounds Skin General skin exam: no rashes or lesions noted Neuro General: patient oriented x3 Extrem General: Yes normal to inspection, No no pedal edema and No calf tenderness Office Procedures EKG Details: EKG shows normal sinus rhythm with normal EKG at 76 beats per minute [id number], Complete Assessment & Plan Assessment & Plan (1) Heart failure with reduced ejection fraction: Code(s): I50.20 - Unspecified systolic (congestive) heart failure Plan: Heart failure with reduced ejection fraction secondary to moderately severe nonischemic cardiomyopathy by echocardiogram 2 years ago. He has had no repeat study. Currently appears to be euvolemic and well compensated with NYHA class 2 symptoms which is most likely related to his weight gain. Using his CPAP therapy. He is currently on good neurohormonal modulation with carvedilol, Jardiance as well as Entresto and spironolactone therapy. Clinically appears to be euvolemic and well compensated current diuretic dose. Continue the same. Heart failure management was discussed in details. Daily weight monitoring avoidance of salt loading was discussed. Advised to continue CPAP therapy. Advised to continue monitor blood pressure at home maintain a log. Will follow-up echocardiogram near future to assess for LV systolic function. If he still has moderate to severely reduced LV ejection fraction despite neurohormonal modulation, consider ICD therapy although in the past he had declined. He will benefit from continued weight loss program. He is encouraged to continue to pursue bariatric program as well as slowly start exercising. Will follow up in the clinic in 6 months time, sooner p.r.n.. Thank you for allowing me to partake in his care Coding Level of Care Code Est Pt Level 4 (84213) Diagnoses Heart failure with reduced ejection fraction I50.20 CPT Codes EKG - CPT: 22934-[id number], Complete ([id number])
[2023-09-15 15:16] VITALS: BP 120/76; PULSE 76; BMI 40.4
== END 2023-09-15 15:39 | disposition home or self-care (01) ==
PROVIDERS: PCP Internal Medicine; Visit Provider Internal Medicine Cardiovascular Disease
DX: I50.20 Unspecified systolic (congestive) heart failure (principal)
CPT/HCPCS: 93010; 99214

== ENCOUNTER → 2023-09-15 14:55 | Outpatient (BNVA) | payer OTHER, SELFPAY | PROVIDERS: PCP Internal Medicine; Visit Provider Internal Medicine Cardiovascular Disease | DX: I50.20 Unspecified systolic (congestive) heart failure (principal) | CPT/HCPCS: 93005; 99212 ==

== ENCOUNTER 2023-11-09 19:26 | Emergency (ER) | payer OTHER, SELFPAY ==
--- NOTE | ~2023-11-09 | XR_ITS ---
EXAMINATION: XR CHEST CLINICAL INFORMATION: Chest pain and cough COMPARISON: 12/29/2020 TECHNIQUE: 2 views of the chest were obtained. FINDINGS: No significant abnormality is noted involving the heart, lungs, mediastinum, bony thorax or soft tissues. XR/XR chest 2V IMPRESSION: Unremarkable examination.
[2023-11-09 20:18] VITALS: BP 108/69; PULSE 99; RESP 20; TEMP 36.7; O2SAT 95; BMI 40.0
--- NOTE | 2023-11-09 20:19 | ED_ITS ---
HPI - General Adult General Chief complaint: Asthma Stated complaint: sob asthma Time Seen by Provider: 11/10/23 01:42 Source: patient Mode of arrival: ambulatory History of Present Illness ED Provider: Dr. Cervantes HPI narrative: 48-year-old male with history of asthma presents with worsening shortness of breath over the past couple of days, significant history of CHF and is currently followed by Dr. Joy. He otherwise denies any fever, chills, use of seasonal allergy medications, GI or symptoms. Related Data Home Medications ?Medication ?Instructions ?Recorded ?Confirmed albuterol sulfate 90 mcg/actuation 2 puff inhalation Q6H PRN Wheezing 05/22/20 09/15/23 aerosol inhaler (ProAir HFA) fluticasone propionate 110 1 puff inhalation BID 05/22/20 09/15/23 mcg/actuation HFA aerosol inhaler (Flovent HFA) furosemide 40 mg tablet (Lasix) 40 mg PO DAILY 05/22/20 09/15/23 ipratropium 0.5 mg-albuterol 3 mg 3 ml inhalation Q4-6H PRN Wheezing 08/22/20 09/15/23 (2.5 mg base)/3 mL nebulization soln metformin 500 mg tablet,extended 500 mg PO DAILY 02/13/21 09/15/23 release 24 hr omeprazole 40 mg capsule,delayed 40 mg PO DAILY 02/13/21 09/15/23 release montelukast 10 mg tablet 10 mg PO DAILY 01/16/22 09/15/23 spironolactone 25 mg tablet 25 mg PO DAILY 01/16/22 09/15/23 Previous Rx's ?Medication ?Instructions ?Recorded docusate sodium 100 mg capsule 100 mg PO DAILY PRN constipation 02/20/21 (Colace) #30 caps sacubitril 49 mg-valsartan 51 mg 1 tab PO BID 90 days #180 tabs 06/26/21 tablet (Entresto) empagliflozin 10 mg tablet 10 mg PO DAILY 90 days #90 tabs 01/06/22 (Jardiance) carvedilol 25 mg tablet 50 mg (2 x 25 mg) PO BID 30 days 11/06/23 #120 tabs prednisone 50 mg tablet 50 mg PO DAILY 4 days #4 tabs 11/10/23 Allergies Allergy/AdvReac Type Severity Reaction Status Date / Time No Known Allergies Allergy Verified 11/09/23 20:19 Review of Systems 2 Review of Systems: Pertinent positives and negatives as stated in [facility] Past Medical History Source: nursing notes reviewed Medical History Recurrent incisional hernia Pre-diabetes PTSD (post-traumatic stress disorder) History of pneumonia GERD (gastroesophageal reflux disease) Anxiety Incisional hernia Cardiomyopathy CHF (congestive heart failure) ARCELIA on CPAP Bronchitis Asthma Surgical History History of esophagogastroduodenoscopy (EGD) History of umbilical hernia repair History of laparoscopic appendectomy Family History Family History Father Diabetes CVD (cardiovascular disease) HTN (hypertension) Mother Diabetes Social History Social History Are you a primary medicare sales executive to a significant other at home: No Do you presently have visiting nurse or other home services: No Patient Tobacco Use Status: Never used Tobacco Advance Directives: No Advance Directives Information Provided: No service: No Current occupational status: unemployed Physical Exam ED Vital Signs: Vital Signs - 24 hr 11/09/23 20:18 11/10/23 01:39 11/10/23 02:17 Temperature 98.0 F 98.0 F Pulse Rate 99 98 87 Respiratory Rate 20 17 21 H Blood Pressure 108/69 130/85 Pulse Oximetry 95 95 Oxygen Delivery Method Room Air Room Air BMI result Body Mass Index 40.0 VITAL SIGNS: Reviewed. GENERAL: Elevated BMI, Well developed, well nourished, in no acute distress. HEAD: Normocephalic/atraumatic EYES: PERRLA, EOMI EARS: Ext canals without abnormality NOSE: Nares patent bilateral OROPHARYNX: no oral lesions noted, posterior pharynx clear NECK: Supple, no adenopathy LUNGS: Decreased breath sounds bilaterally with some noted expiratory wheeze. SpO2<95> CARDIOVASCULAR: Regular rate and rhythm without noted murmurs, no JVD or lower extremity edema. ABDOMEN: Soft, non-tender, non-distended with bowel sounds. MUSCULOSKELETAL: No tenderness, deformities, or effusions noted on gross inspection. EXTREMITIES: No cyanosis, clubbing or edema. SKIN: Inspection of the skin reveals no rashes NEUROLOGIC: Alert and oriented x 4. Strength and sensation to light touch were grossly intact x 4. Course Course Course Narrative: This is an RME: Additional HPI, ROS, PE not included below will be deferred to primary provider. RME assessment and note performed by: Kenzie Dominguez PA-C This is a 32-zonc-pka-male, with a hx of asthma, cardiomyopathy, CHF, GERD, PTSD, who presents to the ER with complaints of shortness of breath, cough x [address] seen [address] Quintero and was started on course of prednisone which he has been taking without any relief. Audible wheezes noted. Coarse lung sounds throughout. Plan: Labs, EKG, chest x-ray Medications Administered Discontinued Medications Generic Name Dose Route Start Last Admin Trade Name Freq PRN Reason Stop Dose Admin Albuterol Sulfate 5 mg 11/10/23 02:06 11/10/23 02:16 Albuterol Sulfate (0.083%) 2.5 Mg/3 Ml Vial.Neb INHALE 11/10/23 02:07 5 mg ONCE ONE Administration Medical Decision Making Medical Decision Making MDM Narrative: 48-year-old male with history and clinical presentation, DDX: Asthma, seasonal allergies, low clinical suspicion for CHF exacerbation. I reviewed all investigations and hematologic indices are negative for leukocytosis there is a stable normocytic anemia without thrombocytopenia. Coagulation studies are within normal limits. Patient has a change in renal function but comparison is from 2021 and suspect that this is likely a progression his underlying medical comorbidities but will encourage patient to increase fluid hydration and obtain short follow-up with his primary care doctor. He is also noted to be hyperglycemic without evidence of DKA or HHS. BNP is within normal limits and there are no clinical findings to suggest fluid overload, I sensitivity troponin is undetectable and chest x-ray is negative for infiltrate or venous congestion and otherwise my interpretation is in agreement with radiology's impression. My interpretation is that patient has had a mild asthma exacerbation likely contributed by seasonal allergies for which he has currently not pursuing any xszv-fku-ldhbwwo treatments. He is otherwise discharged with a short course of steroids instructions to begin seasonal allergy medications. Differential Diagnosis Differential Diagnoses: The differential diagnosis associated with the presentation includes Please see the discussion above Admission/Observation Consideration of admission/observation: Escalation of care including admission/observation considered Please see the discussion above Lab Data MDM Lab Attestation statement: I reviewed the patient's lab results. Please see the discussion above 11/09/23 20:30 11/09/23 20:30 Labs: Lab Results 11/09/23 Range/Units 20:30 WBC 7.7 (4.8-10.8) X10*3/uL RBC 4.57 L (4.60-5.80) X10*6/uL Hgb 12.5 L (14.0-18.0) g/dl Hct 38.1 L (42.0-52.0) % MCV 83.4 (80.0-98.0) fL MCH 27.4 (27.0-33.0) pg MCHC 32.8 (31.0-36.0) g/dl RDW 13.6 (11.0-16.0) % Plt Count 253 (160-400) X10*3/uL MPV 10.8 (9.4-12.4) fL Immature Gran % (Auto) 0.4 (0.0-0.4) % Neut % (Auto) 85.1 H (45-73) % Lymph % (Auto) 8.9 L (20-40) % [place] % (Auto) 5.2 (2-11) % Eos % (Auto) 0.1 (0-4) % Baso % (Auto) 0.3 (0-2) % Lymph # (Auto) 0.7 L (1.2-4.9) X10*3/uL [place] # (Auto) 0.4 (0.1-1.2) X10*3/uL Eos # (Auto) 0.0 (0.0-0.4) X10*3/uL Baso # (Auto) 0.0 (0.0-0.2) X10*3/uL Abs Immat Gran (auto) 0.03 (0.00-0.03) X10*3/uL Absolute Neuts (auto) 6.5 (2.0-8.3) x10*3/uL Absolute Nucleated RBC 0.000 (0.0-0.012) X10*3/uL Nucleated RBC % (auto) 0.0 (0.0-0.2) /100WBC PT 10.5 L (11.1-13.3) SEC INR 0.9 (0.9-1.1) APTT 26.6 (26.0-36.8) SEC Sodium 136 (135-145) mmol/L Potassium 4.0 (3.3-5.1) mmol/L Chloride 103 (96-108) mmol/L Carbon Dioxide 21 L (22-29) mmol/L Anion Gap 16 (12-20) BUN 24 H (9-16) mg/dL Creatinine 1.65 H (0.5-1.4) mg/dL Estim Creat Clear Calc 77.5 Estimated GFR 45 Random Glucose 338 H (60-115) mg/dL Calcium 9.4 (8.4-10.2) mg/dL Magnesium 1.8 (1.6-2.6) mg/dL Total Bilirubin 0.4 (0.0-1.0) mg/dL Direct Bilirubin 0.1 (0.0-0.5) mg/dL AST 18 (5-37) U/L ALT 28 (0-40) U/L Alkaline Phosphatase 52 (39-117) U/L Troponin I High Sens < 2.7 (<3.5-35.0) ng/L B-Natriuretic Peptide 12 (<100) pg/mL Total Protein 7.8 (6.5-8.0) g/dL Albumin 4.3 (3.5-5.0) g/dL Influenza Type A (PCR) NEGATIVE (Negative) Influenza Type B (PCR) NEGATIVE (Negative) RSV RNA Qual (PCR) NEGATIVE (Negative) SARS-CoV-2 RNA (RT-PCR) NEGATIVE (Negative) Independent Interpretation I performed an independent interpretation of an: EKG Interpretation: Normal sinus rhythm, HR-92, no STEMI, SC/QRS/QTC is within normal limits. Radiology Impression Discussion of test interpretation with radiology: I have reviewed the radiologist's reading. Radiologist Impression: Please see the discussion above External Record Review External record reviewed: Outpatient record and Prior outpatient labs Chronic Conditions Asthma, CHF Critical Care Time Critical Care Time Critical Care Time: Yes Total Critical Care Time: 45 Attestation: I personally attest to this time spent taking care of the patient. Discharge Plan Discharge Clinical Impression: Asthma exacerbation, Seasonal allergic rhinitis Patient Disposition: Home, Self-Care Instructions: Asthma (ED), Allergic Rhinitis (ED) Additional Instructions: Take medications as prescribed. Recommend that you take ktfy-qaj-hvlwwep Tylenol/ibuprofen for chest wall discomfort from coughing. Also take vymg-dpx-lchrycx cough medication. Follow-up with primary care doctor in the next 1-2 days. Return to the ER for any worsening symptoms. Prescriptions: New prednisone 50 mg tablet 50 mg PO DAILY 4 Days Qty: 4 0RF No Action Entresto 49-51 mg tablet 1 tab PO BID 90 Days Qty: 180 3RF Jardiance 10 mg tablet 10 mg PO DAILY 90 Days Qty: 90 0RF Rx Instructions: Please call for cardiology appointment carvedilol 25 mg tablet 50 mg PO BID 30 Days Qty: 120 2RF ipratropium-albuterol 0.5 mg-3 mg(2.5 mg base)/3 mL solution for nebulization 3 ml inhalation Q4-6H PRN (Reason: Wheezing) montelukast 10 mg tablet 10 mg PO DAILY spironolactone 25 mg tablet 25 mg PO DAILY docusate sodium [Colace] 100 mg capsule 100 mg PO DAILY PRN (Reason: constipation) Qty: 30 0RF furosemide [Lasix] 40 mg tablet 40 mg PO DAILY albuterol sulfate [ProAir HFA] 90 mcg/actuation HFA aerosol inhaler 2 puff inhalation Q6H PRN (Reason: Wheezing) Flovent HFA 110 mcg/actuation HFA aerosol inhaler 1 puff inhalation BID metformin 500 mg tablet extended release 24 hr 500 mg PO DAILY omeprazole 40 mg capsule,delayed release(DR/EC) 40 mg PO DAILY Referrals: Hayden Littlejohn MD [Primary Care Provider] - Print Language: Kosovan
--- NOTE | 2023-11-09 20:22 | ECG_ITS ---
Test Reason : CHEST PAIN Blood Pressure : / mmHG Vent. Rate : 092 BPM Atrial Rate : 092 BPM P-R Int : 166 ms QRS Dur : 090 ms QT Int : 344 ms P-R-T Axes : 043 031 033 degrees QTc Int : 425 ms Normal sinus rhythm Nonspecific T wave abnormality Abnormal ECG When compared with ECG of 16-OCT-2019 19:53, Nonspecific T wave abnormality has replaced inverted T waves in Lateral leads Referred By: Kenzie Dominguez Electronically Signed By:Eric Woodard
[2023-11-09 20:39] LABS: MANUAL DIFF FLAG NO
[2023-11-09 20:42] LABS: Basophils Percent Auto 0.3 % (0-2); Eosinophils Percent Auto 0.1 % (0-4); Hematocrit 38.1 % (42.0-52.0); Hemoglobin 12.5 g/dl (14.0-18.0); Imm Gran Abs Auto 0.03 X10*3/uL (0.00-0.03); Imm Gran Pct Auto 0.4 % (0.0-0.4); Lymphocytes Absolute Auto 0.7 X10*3/uL (1.2-4.9); Lymphocytes Percent Auto 8.9 % (20-40); Mean Corpuscular HGB Conc 32.8 g/dl (31.0-36.0); Mean Corpuscular Hemoglobin 27.4 pg (27.0-33.0); Mean Corpuscular Volume 83.4 fL (80.0-98.0); Mean Platelet Volume 10.8 fL (9.4-12.4); Monocytes Absolute Auto 0.4 X10*3/uL (0.1-1.2); Monocytes Percent Auto 5.2 % (2-11); Neutrophils Absolute Auto 6.5 x10*3/uL (2.0-8.3); Neutrophils Percent Auto 85.1 % (45-73); Platelet Count 253 X10*3/uL (160-400); Red Blood Count 4.57 X10*6/uL (4.60-5.80); Red Cell Distribution Width 13.6 % (11.0-16.0); White Blood Count 7.7 X10*3/uL (4.8-10.8)
[2023-11-09 20:49] LABS: INTERNATIONAL NORM RATIO 0.9 (0.9-1.1); Prothrombin Time 10.5 SEC (11.1-13.3)
[2023-11-09 20:52] LABS: Partial Thromboplastin Time 26.6 SEC (26.0-36.8)
[2023-11-09 21:01] LABS: Alanine Aminotransferase 28 U/L (0-40); Albumin Level 4.3 g/dL (3.5-5.0); Alkaline Phosphatase 52 U/L (39-117); Anion Gap 16 (12-20); Aspartate Amino Transferase 18 U/L (5-37); Bilirubin Direct 0.1 mg/dL (0.0-0.5); Bilirubin Total 0.4 mg/dL (0.0-1.0); Blood Urea Nitrogen 24 mg/dL (9-16); Calcium 9.4 mg/dL (8.4-10.2); Carbon Dioxide 21 mmol/L (22-29); Chloride 103 mmol/L (96-108); Creatinine Clr Calc Pharmacy 77.5; Estimated Glomerular Filt Rate 45; Glucose Random 338 mg/dL (60-115); Magnesium 1.8 mg/dL (1.6-2.6); Sodium 136 mmol/L (135-145); Total Protein 7.8 g/dL (6.5-8.0)
[2023-11-09 21:06] LABS: B Type Natriuretic Peptide 12 pg/mL (<100)
[2023-11-09 21:12] LABS: Troponin-I High Sensitivity < 2.7 ng/L (<3.5-35.0)
[2023-11-09 21:23] LABS: Influenza A PCR NEGATIVE (Negative); Influenza B PCR NEGATIVE (Negative); Resp Syncy Virus RNA Qual PCR NEGATIVE (Negative); SARS COV2 PCR INHOUSE NEGATIVE (Negative)
[2023-11-10 01:39] VITALS: BP 130/85; PULSE 98; RESP 17; TEMP 36.7; O2SAT 95
[2023-11-10] MEDS: Albuterol Sulfate (0.083%) 2.5 MG/3 ML VIAL.NEB 5 MG INHALE (02:16)
[2023-11-10 02:17] VITALS: PULSE 87; RESP 21; O2SAT 93
[2023-11-10] MEDS: Albuterol Sulfate 90 MCG 8 GM INHALER 2 PUFF INHALE (02:53)
[2023-11-10] MEDS: predniSONE 10 MG TABLET 50 MG PO (02:53)
[2023-11-10] MEDS: Acetaminophen 325 MG TABLET 975 MG PO (02:53)
[2023-11-10] MEDS: Ibuprofen 400 MG TABLET PO (02:54)
--- NOTE | 2023-11-10 03:01 | PC.NURSE ---
Dr. Cervantes aware of pt pain 03/31 general body aches; pt medicated per aug. pt tolerated meds po. pt demonstrated proper use of inhaler. requests duoneb solution sent to pharmacy; Dr. Cervantes aware. pt verbalizes understanding d.c instructions.
[2023-11-10 03:02] VITALS: BP 132/82; PULSE 87; RESP 20; TEMP 37; O2SAT 96
== END 2023-11-10 03:04 | disposition home or self-care (01) ==
PROVIDERS: Physician Assistant Medical; Emergency Provider Student in an Organized Health Care Education/Training Program; PCP Internal Medicine
DX: J45.901 Unspecified asthma with (acute) exacerbation (principal); J30.2 Other seasonal allergic rhinitis; R06.02 Shortness of breath; R05.9 Cough, unspecified; Z03.818 Encounter for observation for suspected exposure to other biological agents ruled out
CPT/HCPCS: 0241U; 36415; 71046; 80048; 80076; 83735; 83880; 84484; 85025; 85610; 85730; 93005; 94640; 99284; 99285

== ENCOUNTER → 2023-11-09 20:22 | Outpatient (BNV) | payer OTHER, SELFPAY | PROVIDERS: Emergency Provider Student in an Organized Health Care Education/Training Program; PCP Internal Medicine; Visit Provider Internal Medicine Cardiovascular Disease | DX: R94.31 Abnormal electrocardiogram [ECG] [EKG] (principal) | CPT/HCPCS: 93010 ==

== ENCOUNTER 2024-02-03 14:48 | Outpatient (REF) | payer OTHER, SELFPAY ==
[2024-02-03 15:08] LABS: MANUAL DIFF FLAG NO
[2024-02-03 15:42] LABS: Basophils Percent Auto 0.4 % (0-2); Eosinophils Absolute Auto 0.2 X10*3/uL (0.0-0.4); Hematocrit 37.5 % (42.0-52.0); Hemoglobin 12.4 g/dl (14.0-18.0); Imm Gran Abs Auto 0.03 X10*3/uL (0.00-0.03); Imm Gran Pct Auto 0.4 % (0.0-0.4); Lymphocytes Absolute Auto 0.9 X10*3/uL (1.2-4.9); Lymphocytes Percent Auto 11.7 % (20-40); Mean Corpuscular HGB Conc 33.1 g/dl (31.0-36.0); Mean Corpuscular Hemoglobin 28.2 pg (27.0-33.0); Mean Corpuscular Volume 85.4 fL (80.0-98.0); Mean Platelet Volume 10.3 fL (9.4-12.4); Monocytes Absolute Auto 0.8 X10*3/uL (0.1-1.2); Monocytes Percent Auto 11.1 % (2-11); Neutrophils Absolute Auto 5.4 x10*3/uL (2.0-8.3); Neutrophils Percent Auto 73.4 % (45-73); Platelet Count 250 X10*3/uL (160-400); Red Blood Count 4.39 X10*6/uL (4.60-5.80); Red Cell Distribution Width 13.7 % (11.0-16.0); White Blood Count 7.4 X10*3/uL (4.8-10.8)
[2024-02-03 15:53] LABS: Estimated Average Glucose 169 mg/dL; Hemoglobin A1c % 7.5 % (<6.0)
[2024-02-03 16:05] LABS: Alanine Aminotransferase 40 U/L (0-40); Albumin Level 4.1 g/dL (3.5-5.0); Alkaline Phosphatase 48 U/L (39-117); Anion Gap 12 (12-20); Aspartate Amino Transferase 24 U/L (5-37); Bilirubin Total 0.5 mg/dL (0.0-1.0); Blood Urea Nitrogen 14 mg/dL (9-16); Calcium 9.3 mg/dL (8.4-10.2); Carbon Dioxide 24 mmol/L (22-29); Chloride 105 mmol/L (96-108); Estimated Glomerular Filt Rate > 60; Glucose Random 155 mg/dL (60-115); Potassium 3.5 mmol/L (3.3-5.1); Sodium 137 mmol/L (135-145); Total Protein 7.4 g/dL (6.5-8.0)
== END 2024-02-03 14:49 | disposition home or self-care (01) ==
LOC: HO.LAB 14:48
PROVIDERS: PCP Internal Medicine; Visit Provider Internal Medicine
DX: E11.9 Type 2 diabetes mellitus without complications (principal); I10 Essential (primary) hypertension
CPT/HCPCS: 36415; 80053; 83036; 85025

== ENCOUNTER 2024-02-17 21:42 | Inpatient (IN) | payer OTHER, SELFPAY ==
--- NOTE | ~2024-02-17 | XR_ITS ---
EXAMINATION: XR CHEST CLINICAL INFORMATION: Cough COMPARISON: 11/09/2023 TECHNIQUE: Frontal view of the chest was obtained. FINDINGS: Elevated right hemidiaphragm stable and unchanged. Lungs otherwise clear. Heart and pulmonary vessels normal. There is degenerative change in the left AC joint. XR/XR chest 1V IMPRESSION: No active disease. Electronically signed by: Faisal Pham MD 02/23/2024 02:12 PM EDT
[2024-02-17 21:49] VITALS: BP 108/63; PULSE 83; RESP 18; TEMP 36.6; O2SAT 94; BMI 32.1
[2024-02-17 23:00] LABS: MANUAL DIFF FLAG NO
[2024-02-17 23:02] LABS: Basophils Percent Auto 0.1 % (0-2); Imm Gran Abs Auto 0.08 X10*3/uL (0.00-0.03); Imm Gran Pct Auto 0.7 % (0.0-0.4); Lymphocytes Absolute Auto 0.7 X10*3/uL (1.2-4.9); Lymphocytes Percent Auto 5.8 % (20-40); Mean Corpuscular HGB Conc 32.4 g/dl (31.0-36.0); Mean Corpuscular Hemoglobin 28.1 pg (27.0-33.0); Mean Corpuscular Volume 86.7 fL (80.0-98.0); Mean Platelet Volume 10.6 fL (9.4-12.4); Monocytes Absolute Auto 0.2 X10*3/uL (0.1-1.2); Monocytes Percent Auto 1.6 % (2-11); Neutrophils Absolute Auto 10.5 x10*3/uL (2.0-8.3); Neutrophils Percent Auto 91.8 % (45-73); Platelet Count 228 X10*3/uL (160-400); Red Blood Count 4.27 X10*6/uL (4.60-5.80); Red Cell Distribution Width 13.2 % (11.0-16.0); SCAN SMEAR FLAG 1; White Blood Count 11.4 X10*3/uL (4.8-10.8)
[2024-02-17 23:09] LABS: Appearance Urine Clear; Color Urine Yellow; Glucose Urine UA >=1000 mg/dL (Negative); Leukocyte Esterase Urine Negative (Negative); Nitrite Urine Negative (Negative); PH 5.5 (5.0-9.0); Specific Gravity - Urine 1.025 (1.005-1.025); UMIC TRIGGER UA YES; Urine Blood Negative (Negative); Urine Ketones Negative (Negative); Urine Protein Negative (Neg-Trace)
[2024-02-17 23:14] LABS: Bacteria Urine None Seen (None Seen); Hyaline Casts Urine 0-2 /LPF (0-2); RBC Urine 0-2 /HPF (0-2); Squamous Epithelial Cell Urine 0-2 /HPF (0-2); WBC Urine 0-5 /HPF (0-5)
[2024-02-17 23:23] LABS: Amphetamine Screen Urine Not Detected (Not Detect); Barbiturates, Urine Not Detected (Not Detect); Benzodiazepines Screen Urine Not Detected (Not Detect); Buprenorphine Scr Not Detected (Not Detect); Cannabinoid Screen Urine Not Detected (Not Detect); Cocaine Screen Urine POSITIVE (Not Detect); Fentanyl, urine Not Detected (Not Detect); Methadone Screen, Urine Not Detected (Not Detect); Opiate Screen Urine Not Detected (Not Detect); Oxycodone Screen Urine Not Detected (Not Detect); Phencyclidine Screen Urine Not Detected (Not Detect)
[2024-02-17 23:29] LABS: Alanine Aminotransferase 28 U/L (0-40); Albumin Level 3.8 g/dL (3.5-5.0); Alkaline Phosphatase 48 U/L (39-117); Anion Gap 18 (12-20); Aspartate Amino Transferase 15 U/L (5-37); Bilirubin Total 0.3 mg/dL (0.0-1.0); Blood Urea Nitrogen 17 mg/dL (9-16); Calcium 8.7 mg/dL (8.4-10.2); Carbon Dioxide 18 mmol/L (22-29); Chloride 102 mmol/L (96-108); Creatinine Clr Calc Pharmacy 83.4; Estimated Glomerular Filt Rate 52; Ethanol 163 mg/dL; Glucose Random 544 mg/dL (60-115); Potassium 3.2 mmol/L (3.3-5.1); Sodium 135 mmol/L (135-145)
[2024-02-17] MEDS: Insulin Lispro 100 UNIT/ML 3 ML VIAL 10 UNIT SUBCUT (23:52)
[2024-02-17] MEDS: Potassium Chloride Packet 20 MEQ PACKET 40 MEQ PO (23:53)
[2024-02-18] VITALS (8 sets, daily range): BP systolic 120–138; BP diastolic 60–93; PULSE 66–102; RESP 16–20; TEMP 36.1–36.7; O2SAT 94–97
--- NOTE | 2024-02-18 | ECG_ITS ---
Test Reason : QTC PROLONGATION Blood Pressure : / mmHG Vent. Rate : 073 BPM Atrial Rate : 073 BPM P-R Int : 176 ms QRS Dur : 100 ms QT Int : 440 ms P-R-T Axes : 055 021 017 degrees QTc Int : 484 ms Normal sinus rhythm with sinus arrhythmia Prolonged QT Abnormal ECG When compared with ECG of 09-NOV-2023 20:25, QT has lengthened Referred By: Amanda Saenz Electronically Signed By:TITA BRYANT
[2024-02-18 01:12] LABS: Glucose, Whole Blood 495 mg/dL (60-115)
[2024-02-18] MEDS: Insulin Lispro 100 UNIT/ML 3 ML VIAL 10 UNIT SUBCUT (01:50)
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
--- NOTE | 2024-02-18 02:22 | PC.NURSE ---
Patient's serum blood sugar was at 2255 was 544, lispro 10 units administered as ordered, follow up POC @ 0106 was 495, provider notified/ordered lispro 10 units/administered as ordered, patient compliant, will continue to monitor
[2024-02-18] MEDS: carvediloL 25 MG TABLET 50 MG PO ×2 (03:49→18:15)
[2024-02-18] MEDS: Sacubitril/Valsartan 49/51 1 TAB TABLET PO ×3 (03:50→20:56)
[2024-02-18] MEDS: LORazepam 1 MG TABLET 2 MG PO (04:41)
[2024-02-18 06:37] LABS: Glucose, Whole Blood 175 mg/dL (60-115)
--- NOTE | 2024-02-18 07:14 | PC.NURSE ---
Assumed care of patient at 0645, patient sitting up in bed at this time, eating breakfast, offering no complaints at this time. Continue plan of care for inpatient bedsearch this am
[2024-02-18 07:17] LABS: Glucose, Whole Blood 166 mg/dL (60-115)
[2024-02-18] MEDS: Omeprazole 40 MG CAPSULE.DR PO (09:00)
[2024-02-18] MEDS: metFORMIN HCl ER 500 MG TAB.ER.24H PO (09:00)
[2024-02-18] MEDS: Furosemide 40 MG TABLET PO (09:00)
[2024-02-18] MEDS: FLUoxetine HCl 20 MG CAPSULE PO (09:00)
[2024-02-18] MEDS: Spironolactone 25 MG TABLET PO (09:00)
[2024-02-18] MEDS: Empagliflozin 25 MG TABLET PO (09:58)
[2024-02-18 13:00] LABS: MANUAL DIFF FLAG NO
[2024-02-18 13:04] LABS: Basophils Percent Auto 0.2 % (0-2); Eosinophils Percent Auto 0.4 % (0-4); Hematocrit 36.5 % (42.0-52.0); Hemoglobin 12.2 g/dl (14.0-18.0); Imm Gran Abs Auto 0.09 X10*3/uL (0.00-0.03); Imm Gran Pct Auto 0.9 % (0.0-0.4); Lymphocytes Absolute Auto 2.4 X10*3/uL (1.2-4.9); Mean Corpuscular HGB Conc 33.4 g/dl (31.0-36.0); Mean Corpuscular Hemoglobin 28.6 pg (27.0-33.0); Mean Corpuscular Volume 85.7 fL (80.0-98.0); Mean Platelet Volume 10.3 fL (9.4-12.4); Monocytes Absolute Auto 0.8 X10*3/uL (0.1-1.2); Monocytes Percent Auto 8.4 % (2-11); Neutrophils Absolute Auto 6.3 x10*3/uL (2.0-8.3); Neutrophils Percent Auto 65.1 % (45-73); Platelet Count 225 X10*3/uL (160-400); Red Blood Count 4.26 X10*6/uL (4.60-5.80); Red Cell Distribution Width 13.2 % (11.0-16.0); White Blood Count 9.7 X10*3/uL (4.8-10.8)
[2024-02-18 13:21] LABS: Alanine Aminotransferase 27 U/L (0-40); Albumin Level 3.6 g/dL (3.5-5.0); Alkaline Phosphatase 41 U/L (39-117); Anion Gap 11 (12-20); Aspartate Amino Transferase 12 U/L (5-37); Bilirubin Total 0.5 mg/dL (0.0-1.0); Blood Urea Nitrogen 16 mg/dL (9-16); Calcium 9.1 mg/dL (8.4-10.2); Carbon Dioxide 30 mmol/L (22-29); Chloride 101 mmol/L (96-108); Creatinine Clr Calc Pharmacy 124.7; Estimated Glomerular Filt Rate > 60; Glucose Random 196 mg/dL (60-115); Potassium 3.3 mmol/L (3.3-5.1); Sodium 139 mmol/L (135-145); Total Protein 6.9 g/dL (6.5-8.0)
[2024-02-18] MEDS: Thiamine HCL 100 MG TABLET PO (15:44)
[2024-02-18] MEDS: Acetaminophen 325 MG TABLET 650 MG PO (17:22)
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
[2024-02-18] MEDS: hydrOXYzine HCL 25 MG TABLET PO (18:26)
[2024-02-18] MEDS: traZODone HCL 50 MG TABLET PO (20:55)
[2024-02-18] MEDS: Montelukast Sodium 10 MG TABLET PO (20:55)
[2024-02-18] MEDS: cloNIDine HCL 0.1 MG TABLET PO (20:55)
[2024-02-18] MEDS: predniSONE 20 MG TABLET PO (20:55)
[2024-02-18] MEDS: QUEtiapine Fumarate 25 MG TABLET PO (20:56)
[2024-02-18] MEDS: OLANZapine 5 MG TABLET PO (20:56)
[2024-02-18] MEDS: LORazepam 1 MG TABLET PO (21:00)
--- NOTE | 2024-02-19 00:44 | PC.NURSE ---
Addendum entered by Stephanie Hernandez RN 02/19/24 06:10: Allowed pt to sleep through CIWA at 0400. Pt sleeping soundly and comfortably. Original Note: Pt sleeping so did not wake for 1200AM CIWA scale. Breathing is even and unlabored.
[2024-02-19 08:31] VITALS: BP 107/56; PULSE 64; RESP 16; TEMP 36.4; O2SAT 93
[2024-02-19 08:50] LABS: Estimated Average Glucose 192 mg/dL; Hemoglobin A1c % 8.3 % (<6.0)
[2024-02-19] MEDS: FLUoxetine HCl 20 MG CAPSULE PO (08:52)
[2024-02-19] MEDS: Furosemide 40 MG TABLET PO (08:52)
[2024-02-19] MEDS: Thiamine HCL 100 MG TABLET PO (08:53)
[2024-02-19] MEDS: metFORMIN HCl ER 500 MG TAB.ER.24H PO (08:53)
[2024-02-19] MEDS: Empagliflozin 25 MG TABLET PO (08:53)
[2024-02-19] MEDS: Omeprazole 40 MG CAPSULE.DR PO (08:53)
[2024-02-19] MEDS: Folic Acid 1 MG TABLET PO (08:53)
[2024-02-19] MEDS: Sacubitril/Valsartan 49/51 1 TAB TABLET PO ×2 (08:53→20:33)
[2024-02-19] MEDS: Spironolactone 25 MG TABLET PO (08:53)
[2024-02-19] MEDS: Multivitamin TABLET 1 TAB PO (08:53)
[2024-02-19] MEDS: carvediloL 25 MG TABLET 50 MG PO ×2 (08:53→16:34)
[2024-02-19] MEDS: predniSONE 20 MG TABLET PO (08:53)
[2024-02-19 09:02] LABS: Cholesterol 244 mg/dL (<200); HDL Cholesterol 71 mg/dL (>40); LDL Cholesterol Calculated 109 mg/dL (<100); Triglycerides 322 mg/dL (<150)
[2024-02-19 09:18] LABS: TSH reflex Free T4 0.48 uIU/mL (0.32-4.0)
[2024-02-19] MEDS: Acetaminophen 325 MG TABLET 650 MG PO ×2 (12:51→20:33)
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
[2024-02-19 16:29] VITALS: BP 129/81; PULSE 94; RESP 16
[2024-02-19] MEDS: LORazepam 1 MG TABLET PO ×2 (16:38→20:38)
[2024-02-19] MEDS: hydrOXYzine HCL 25 MG TABLET PO (16:38)
[2024-02-19 20:00] VITALS: BP 109/72; PULSE 106; RESP 18; TEMP 36.6; O2SAT 96
[2024-02-19] MEDS: cloNIDine HCL 0.1 MG TABLET PO (20:32)
[2024-02-19] MEDS: QUEtiapine Fumarate 25 MG TABLET PO (20:32)
[2024-02-19] MEDS: OLANZapine 5 MG TABLET PO (20:33)
[2024-02-19] MEDS: traZODone HCL 100 MG TABLET PO (20:33)
--- NOTE | 2024-02-19 21:11 | PC.NURSE ---
Pt A1c was noted on lab results today to be 8.3%. Printed out educational information regarding complications of high blood glucose levels and what to do to lower blood glucose levels. Pt accepted and was appreciative.
[2024-02-20] VITALS (7 sets, daily range): BP systolic 113–124; BP diastolic 67–87; PULSE 72–94; RESP 16–18; TEMP 35.9–36.5; O2SAT 93–96
[2024-02-20] MEDS: Omeprazole 40 MG CAPSULE.DR PO (08:23)
[2024-02-20] MEDS: predniSONE 20 MG TABLET PO (08:23)
[2024-02-20] MEDS: Thiamine HCL 100 MG TABLET PO (08:23)
[2024-02-20] MEDS: FLUoxetine HCl 20 MG CAPSULE PO (08:23)
[2024-02-20] MEDS: Spironolactone 25 MG TABLET PO (08:23)
[2024-02-20] MEDS: Folic Acid 1 MG TABLET PO (08:23)
[2024-02-20] MEDS: metFORMIN HCl ER 500 MG TAB.ER.24H PO (08:23)
[2024-02-20] MEDS: Sacubitril/Valsartan 49/51 1 TAB TABLET PO ×2 (08:24→21:31)
[2024-02-20] MEDS: carvediloL 25 MG TABLET 50 MG PO ×2 (08:24→16:42)
[2024-02-20] MEDS: Multivitamin TABLET 1 TAB PO (08:24)
[2024-02-20] MEDS: Empagliflozin 25 MG TABLET PO (08:24)
[2024-02-20] MEDS: Furosemide 40 MG TABLET PO (08:24)
--- NOTE | 2024-02-20 09:07 | HO.PSYCHPN ---
Subjective Subjective Date of Service: 02/20/24 Reason For Visit: depressed Interim History: Reports feeling OK today. Denies withdrawal symptoms. Low CIWA scores. Tolerating medication changes so far. Denies SI. Denies AVH. He is diabetic and will start POC QID HS and sliding scale. Review of Systems Review of Systems Constitutional : No Weight loss, No Fever, No Chills, No Night Sweats, No Fatigue, No Malaise ENT/Mouth : No Hearing loss, No Ear Pain, No Nasal Congestion, No Sinus Pain, No Hoarseness, No sore throat, No Rhinorrhea, No Swallowing Difficulty Eyes: No Eye Pain, No Swelling, No Redness, No Foreign Body, No Discharge, No Vision Changes Cardiovascular : No Chest Pain, No SOB, No Dyspnea on Exertion, No Orthopnea, No Edema, No Palpitations Respiratory : No Cough, No Sputum, No Wheezing, No Smoke Exposure, No Dyspnea Gastrointestinal : No Nausea, No Vomiting, No Diarrhea, No Constipation, No abdominal Pain, No Hematochezia, No Melena Genitourinary : no irregular bleeding, No Dysuria, No Urinary Frequency, No Hematuria, No Urinary Incontinence, No Urgency, No Flank Pain, No Urinary Flow Changes, No Hesitancy Musculoskeletal : No joint pain, No Myalgias, No Joint Swelling Skin : No Skin Lesions, No rash Neuro : No Weakness, No Numbness, No Paresthesias, No Loss of Consciousness, No Dizziness, No Headache Psych : No Anxiety/Panic, complaining of depression, vague SI Heme/Lymph: No Bruising, No Bleeding,No Lymphadenopathy Endocrine : No Polyuria, No Polydipsia, No Temperature Intolerance Constitutional: Reports no additional constitutional complaints Eyes: Reports no additional eye complaints Cardiovascular: Reports no additional cardiovascular complaints Respiratory: Reports no additional respiratory complaints Gastrointestinal: Reports no additional gastrointestinal complaints Genitourinary: Reports no additional male genitourinary complaints Musculoskeletal: Reports no additional musculoskeletal complaints Skin/Breast: Reports system reviewed and no additional complaints, except as docu Psychiatric: Reports no additional psychiatric complaints Hematologic/Lymphatic: Reports no additional hematologic/lymphatic complaints Mental Status Exam Mental Status Exam Narrative: obese, disheveled. cooperative. no PMA/PMR. speech nml rate, decr amount, nml loudness, nml tone, nml latency. thoughts linear and logical. affect constricted, normo-intense, non-labile. mood tiffany shitty. denies SI/SIBI/HI/AVH. Diagnostics Vital Signs (24Hr): Vital Signs - 24 hr 02/19/24 16:29 02/19/24 20:00 02/20/24 00:03 Temperature 97.8 F Pulse Rate 94 106 H Respiratory Rate 16 18 18 Blood Pressure 129/81 109/72 Pulse Oximetry 96 Oxygen Delivery Method Room Air 02/20/24 07:45 Temperature 97.7 F Pulse Rate 72 Respiratory Rate 16 Blood Pressure 113/67 Pulse Oximetry 93 Oxygen Delivery Method Room Air BMI result Body Mass Index 32.1 Labs 02/18/24 12:57 02/18/24 12:57 Labs: Laboratory Results - last 48 hr 02/18/24 02/19/24 12:57 07:56 WBC 9.7 RBC 4.26 L Hgb 12.2 L Hct 36.5 L MCV 85.7 MCH 28.6 MCHC 33.4 RDW 13.2 Plt Count 225 MPV 10.3 Immature Gran % (Auto) 0.9 H Neut % (Auto) 65.1 Lymph % (Auto) 25.0 [place] % (Auto) 8.4 Eos % (Auto) 0.4 Baso % (Auto) 0.2 Lymph # (Auto) 2.4 [place] # (Auto) 0.8 Eos # (Auto) 0.0 Baso # (Auto) 0.0 Abs Immat Gran (auto) 0.09 H Absolute Neuts (auto) 6.3 Absolute Nucleated RBC 0.000 Nucleated RBC % (auto) 0.0 Sodium 139 Potassium 3.3 Chloride 101 Carbon Dioxide 30 H Anion Gap 11 L BUN 16 Creatinine 0.97 Estim Creat Clear Calc 124.7 Estimated GFR > 60 Random Glucose 196 H Estimat Average Glucose 192 Hemoglobin A1c % 8.3 H Calcium 9.1 Total Bilirubin 0.5 AST 12 ALT 27 Alkaline Phosphatase 41 Total Protein 6.9 Albumin 3.6 Triglycerides 322 H Cholesterol 244 H LDL Cholesterol, Calc 109 H HDL Cholesterol 71 TSH 0.48 Medications Medications Current Medications Acetaminophen (Acetaminophen 325 Mg Tablet) 650 mg PO Q6H PRN PRN Reason: Headache/Pain Mild Scale (1-3) Last Admin: 02/19/24 20:33 Dose: 650 mg Al Hydroxide/Mg Hydroxide (Magnesium Hydrox/Alum Hydrox 30 Ml Oral.Susp) 30 ml PO Q6H PRN PRN Reason: Heartburn/Nausea Carvedilol (Carvedilol 25 Mg Tablet) 50 mg PO BIDWM [facility]; Protocol Last Admin: 02/20/24 08:24 Dose: 50 mg Clonidine HCl (Clonidine Hcl 0.1 Mg Tablet) 0.1 mg PO Q4H PRN; Protocol PRN Reason: anxiety Last Admin: 02/19/24 20:32 Dose: 0.1 mg Docusate Sodium (Docusate Sodium 100 Mg Capsule) 100 mg PO DAILY PRN PRN Reason: constipation Empagliflozin (Empagliflozin 25 Mg Tablet) 25 mg PO DAILY [facility] Last Admin: 02/20/24 08:24 Dose: 25 mg Fluoxetine HCl (Fluoxetine Hcl 20 Mg Capsule) 20 mg PO DAILY [facility] Last Admin: 02/20/24 08:23 Dose: 20 mg Folic Acid (Folic Acid 1 Mg Tablet) 1 mg PO DAILY [facility] Last Admin: 02/20/24 08:23 Dose: 1 mg Furosemide (Furosemide 40 Mg Tablet) 40 mg PO DAILY [facility]; Protocol Last Admin: 02/20/24 08:24 Dose: 40 mg Hydroxyzine HCl (Hydroxyzine Hcl 25 Mg Tablet) 25 mg PO Q6H PRN PRN Reason: Anxiety Last Admin: 02/19/24 16:38 Dose: 25 mg Lorazepam (Lorazepam 1 Mg Tablet) 1 mg PO Q2H PRN PRN Reason: CIWA 8-11 Last Admin: 02/19/24 20:38 Dose: 1 mg Lorazepam (Lorazepam 1 Mg Tablet) 2 mg PO Q2H PRN PRN Reason: CIWA 12-15 Lorazepam (Lorazepam 1 Mg Tablet) 3 mg PO Q2H PRN PRN Reason: CIWA > 15; and notify Magnesium Hydroxide (Milk Of Magnesia 30 Ml Oral.Susp) 30 ml PO DAILY PRN PRN Reason: Constipation Metformin HCl (Metformin Hcl Er 500 Mg Tab.Er.24h) 500 mg PO DAILY@0800 [facility] Last Admin: 02/20/24 08:23 Dose: 500 mg Multivitamins/Vitamin C (Multivitamin Tablet) 1 tab PO DAILY [facility] Last Admin: 02/20/24 08:24 Dose: 1 tab Nicotine (Nicotine 21 Mg Patch.Td24) 21 mg TRANSDERMA DAILY PRN PRN Reason: smoking cessation Nicotine Polacrilex (Nicotine Polacrilex 2 Mg Gum) 4 mg BUCCAL Q2H PRN PRN Reason: Nicotine Cravings Pat Own Med ( Tirzepatide [ Mounjaro] 2.5 Mg/0.5 Ml Pen Injector) 2.5 mg SUBCUT Fr@0900 [facility] Last Admin: 02/19/24 20:49 Dose: 2.5 mg Olanzapine (Olanzapine 5 Mg Tablet) 5 mg PO TID PRN PRN Reason: agitation Last Admin: 02/19/24 20:33 Dose: 5 mg Omeprazole (Omeprazole 40 Mg Capsule.Dr) 40 mg PO DAILY [facility] Last Admin: 02/20/24 08:23 Dose: 40 mg Prednisone (Prednisone 20 Mg Tablet) 20 mg PO DAILY [facility] Stop: 02/20/24 23:00 Last Admin: 02/20/24 08:23 Dose: 20 mg Prednisone (Prednisone 10 Mg Tablet) 10 mg PO DAILY [facility] Stop: 02/23/24 23:00 Quetiapine Fumarate (Quetiapine Fumarate 25 Mg Tablet) 25 mg PO TID PRN PRN Reason: mod anxiety Last Admin: 02/19/24 20:32 Dose: 25 mg Sacubitril/Valsartan (Sacubitril/Valsartan 49/51 1 Tab Tablet) 1 tab PO BID [facility]; Protocol Last Admin: 02/20/24 08:24 Dose: 1 tab Spironolactone (Spironolactone 25 Mg Tablet) 25 mg PO DAILY [facility]; Protocol Last Admin: 02/20/24 08:23 Dose: 25 mg Thiamine HCl (Thiamine Hcl 100 Mg Tablet) 100 mg PO DAILY [facility] Last Admin: 02/20/24 08:23 Dose: 100 mg Trazodone HCl (Trazodone Hcl 100 Mg Tablet) 100 mg PO BEDTIME [facility] Last Admin: 02/19/24 20:33 Dose: 100 mg Allergies Allergies Allergy/AdvReac Type Severity Reaction Status Date / Time No Known Allergies Allergy Verified 02/17/24 21:52 Assessment & Plan Assessment & Plan (1) Heart failure with reduced ejection fraction: Status: Acute Code(s): I50.20 - Unspecified systolic (congestive) heart failure (2) Cardiomyopathy: Status: Acute Code(s): I42.9 - Cardiomyopathy, unspecified (3) ARCELIA on CPAP: Status: Acute Code(s): G47.33 - Obstructive sleep apnea (adult) (pediatric); Z99.89 - Dependence on other enabling machines and devices (4) Asthma: Status: Acute Code(s): J45.909 - Unspecified asthma, uncomplicated (5) Cocaine abuse: Status: Acute Code(s): F14.10 - Cocaine abuse, uncomplicated (6) Alcohol use: Status: Acute Code(s): Z78.9 - Other specified health status (7) Depressive disorder: Status: Acute Code(s): F32.A - Depression, unspecified Plan continue prozac 20 for now. increase HS trazodone to 100. D/C singulair due to mental health concerns. consult cardiology re adding clonidine to anti-HTN regimen. continue ativan per CIWA protocol. taper after 24hr or more. discuss SUTP and/or meds for EtOH use. 02/19: Add POCs QIDHS and sliding scale and continue current management and treatment plan. Consider DC CIWA. Reason for continued inpatient stay Substantial Risk for: harm to self, inability to function, rapid decompensation and med/psych decompensation Time Spent With Patient Time: Total time managing care of this patient today ____ minutes.
[2024-02-20 09:51] LABS: Glucose, Whole Blood 294 mg/dL (60-115)
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
[2024-02-20 12:51] LABS: Glucose, Whole Blood 409 mg/dL (60-115)
[2024-02-20] MEDS: Insulin Lispro 100 UNIT/ML 3 ML VIAL SUBCUT ×3 (12:56→21:23)
[2024-02-20] MEDS: Ibuprofen 400 MG TABLET PO ×2 (16:41→22:49)
[2024-02-20 17:48] LABS: Glucose, Whole Blood 356 mg/dL (60-115)
[2024-02-20 20:38] LABS: Glucose, Whole Blood 283 mg/dL (60-115)
[2024-02-20] MEDS: Gabapentin 100 MG CAPSULE PO (21:24)
[2024-02-20] MEDS: LORazepam 1 MG TABLET PO (21:24)
[2024-02-20] MEDS: OLANZapine 5 MG TABLET PO (21:24)
[2024-02-20] MEDS: Acetaminophen 325 MG TABLET 650 MG PO (21:25)
[2024-02-20] MEDS: traZODone HCL 100 MG TABLET PO (21:25)
[2024-02-20] MEDS: QUEtiapine Fumarate 25 MG TABLET PO (21:25)
[2024-02-20] MEDS: cloNIDine HCL 0.1 MG TABLET PO (21:32)
[2024-02-21 07:57] VITALS: BP 113/61; PULSE 73; RESP 16; TEMP 36.4; O2SAT 93
[2024-02-21] MEDS: Furosemide 40 MG TABLET PO (08:13)
[2024-02-21] MEDS: metFORMIN HCl ER 500 MG TAB.ER.24H PO (08:13)
[2024-02-21] MEDS: Empagliflozin 25 MG TABLET PO (08:13)
[2024-02-21] MEDS: Gabapentin 100 MG CAPSULE PO (08:13)
[2024-02-21] MEDS: FLUoxetine HCl 20 MG CAPSULE PO (08:13)
[2024-02-21] MEDS: Sacubitril/Valsartan 49/51 1 TAB TABLET PO ×2 (08:13→21:57)
[2024-02-21] MEDS: predniSONE 10 MG TABLET PO (08:13)
[2024-02-21] MEDS: Omeprazole 40 MG CAPSULE.DR PO (08:13)
[2024-02-21] MEDS: Multivitamin TABLET 1 TAB PO (08:13)
[2024-02-21] MEDS: Spironolactone 25 MG TABLET PO (08:13)
[2024-02-21] MEDS: carvediloL 25 MG TABLET 50 MG PO ×2 (08:14→17:41)
[2024-02-21] MEDS: Folic Acid 1 MG TABLET PO (08:14)
[2024-02-21] MEDS: Thiamine HCL 100 MG TABLET PO (08:15)
[2024-02-21 08:49] LABS: Glucose, Whole Blood 265 mg/dL (60-115)
[2024-02-21] MEDS: Insulin Lispro 100 UNIT/ML 3 ML VIAL SUBCUT ×4 (08:51→21:29)
--- NOTE | 2024-02-21 11:39 | HO.PSYCHPN ---
Subjective Subjective Date of Service: 02/21/24 Reason For Visit: depressed Interim History: Patient upset because he wants morphine to help with his pain in lower back and hernia. He was started on GBP yesterday afternoon. He says he wants a head CT or MRI because he has frontal headache. ROS: No dizziness, no diplopia or vision changes, no localized weakness, no nausea or vomiting associated with headache. Denies withdrawal symptoms. Tolerating medication changes. Denies SI. Denies AVH. Review of Systems Review of Systems Constitutional : No Weight loss, No Fever, No Chills, No Night Sweats, No Fatigue, No Malaise ENT/Mouth : No Hearing loss, No Ear Pain, No Nasal Congestion, No Sinus Pain, No Hoarseness, No sore throat, No Rhinorrhea, No Swallowing Difficulty Eyes: No Eye Pain, No Swelling, No Redness, No Foreign Body, No Discharge, No Vision Changes Cardiovascular : No Chest Pain, No SOB, No Dyspnea on Exertion, No Orthopnea, No Edema, No Palpitations Respiratory : No Cough, No Sputum, No Wheezing, No Smoke Exposure, No Dyspnea Gastrointestinal : No Nausea, No Vomiting, No Diarrhea, No Constipation, No abdominal Pain, No Hematochezia, No Melena Genitourinary : no irregular bleeding, No Dysuria, No Urinary Frequency, No Hematuria, No Urinary Incontinence, No Urgency, No Flank Pain, No Urinary Flow Changes, No Hesitancy Musculoskeletal : No joint pain, No Myalgias, No Joint Swelling Skin : No Skin Lesions, No rash Neuro : No Weakness, No Numbness, No Paresthesias, No Loss of Consciousness, No Dizziness, No Headache Psych : No Anxiety/Panic, complaining of depression, vague SI Heme/Lymph: No Bruising, No Bleeding,No Lymphadenopathy Endocrine : No Polyuria, No Polydipsia, No Temperature Intolerance Constitutional: Reports no additional constitutional complaints Eyes: Reports no additional eye complaints Cardiovascular: Reports no additional cardiovascular complaints Respiratory: Reports no additional respiratory complaints Gastrointestinal: Reports no additional gastrointestinal complaints Genitourinary: Reports no additional male genitourinary complaints Musculoskeletal: Reports no additional musculoskeletal complaints Skin/Breast: Reports system reviewed and no additional complaints, except as docu Psychiatric: Reports no additional psychiatric complaints Hematologic/Lymphatic: Reports no additional hematologic/lymphatic complaints Mental Status Exam Mental Status Exam Narrative: obese, disheveled. cooperative. no PMA/PMR. speech nml rate, decr amount, nml loudness, nml tone, nml latency. thoughts linear and logical. affect constricted, normo-intense, non-labile. mood tiffany shitty. denies SI/SIBI/HI/AVH. Diagnostics Vital Signs (24Hr): Vital Signs - 24 hr 02/20/24 16:42 02/20/24 18:20 02/20/24 21:31 Temperature 96.7 F L Pulse Rate 93 94 Respiratory Rate 16 Blood Pressure 124/87 122/71 119/70 Pulse Oximetry 96 Oxygen Delivery Method Room Air 02/20/24 21:32 02/20/24 23:17 02/21/24 07:57 Temperature 97.5 F Pulse Rate 73 Respiratory Rate 16 16 Blood Pressure 119/70 113/61 Pulse Oximetry 93 Oxygen Delivery Method Room Air BMI result Body Mass Index 32.1 Labs 02/18/24 12:57 02/18/24 12:57 Labs: Laboratory Results - last 48 hr 02/20/24 02/20/24 02/20/24 09:45 12:45 17:44 POC Glucose 294 H 409 H* 356 H* 02/20/24 02/21/24 20:33 08:44 POC Glucose 283 H 265 H Medications Medications Current Medications Acetaminophen (Acetaminophen 325 Mg Tablet) 650 mg PO Q6H PRN PRN Reason: Headache/Pain Mild Scale (1-3) Last Admin: 02/20/24 21:25 Dose: 650 mg Al Hydroxide/Mg Hydroxide (Magnesium Hydrox/Alum Hydrox 30 Ml Oral.Susp) 30 ml PO Q6H PRN PRN Reason: Heartburn/Nausea Carvedilol (Carvedilol 25 Mg Tablet) 50 mg PO BIDWM [facility]; Protocol Last Admin: 02/21/24 08:14 Dose: 50 mg Clonidine HCl (Clonidine Hcl 0.1 Mg Tablet) 0.1 mg PO Q4H PRN; Protocol PRN Reason: anxiety Last Admin: 02/20/24 21:32 Dose: 0.1 mg Docusate Sodium (Docusate Sodium 100 Mg Capsule) 100 mg PO DAILY PRN PRN Reason: constipation Empagliflozin (Empagliflozin 25 Mg Tablet) 25 mg PO DAILY [facility] Last Admin: 02/21/24 08:13 Dose: 25 mg Fluoxetine HCl (Fluoxetine Hcl 20 Mg Capsule) 20 mg PO DAILY [facility] Last Admin: 02/21/24 08:13 Dose: 20 mg Folic Acid (Folic Acid 1 Mg Tablet) 1 mg PO DAILY [facility] Last Admin: 02/21/24 08:14 Dose: 1 mg Furosemide (Furosemide 40 Mg Tablet) 40 mg PO DAILY [facility]; Protocol Last Admin: 02/21/24 08:13 Dose: 40 mg Gabapentin (Gabapentin 100 Mg Capsule) 200 mg PO TID [facility] Glucose (Glucose Gel 15 Gm Gel..Gram.) 15 gm PO Q15M PRN; Protocol PRN Reason: per Hypoglycemia Standing Ord. Hydroxyzine HCl (Hydroxyzine Hcl 50 Mg Tablet) 50 mg PO Q6H PRN PRN Reason: Anxiety Dextrose (D10) 250 mls @ 750 mls/hr IV Q15M PRN; Protocol PRN Reason: per Hypoglycemia Standing Ord. Ibuprofen (Ibuprofen 400 Mg Tablet) 400 mg PO Q6H PRN PRN Reason: Pain, Moderate(Pain Scale 4-6) Last Admin: 02/20/24 22:49 Dose: 400 mg Lidocaine (Lidocaine 4 % Patch Adh..Patch) 1 patch TRANSDERMA DAILY [facility]; Protocol Lorazepam (Lorazepam 1 Mg Tablet) 1 mg PO Q2H PRN PRN Reason: CIWA 8-11 Last Admin: 02/20/24 21:24 Dose: 1 mg Lorazepam (Lorazepam 1 Mg Tablet) 2 mg PO Q2H PRN PRN Reason: CIWA 12-15 Lorazepam (Lorazepam 1 Mg Tablet) 3 mg PO Q2H PRN PRN Reason: CIWA > 15; and notify Magnesium Hydroxide (Milk Of Magnesia 30 Ml Oral.Susp) 30 ml PO DAILY PRN PRN Reason: Constipation Metformin HCl (Metformin Hcl Er 500 Mg Tab.Er.24h) 500 mg PO DAILY@0800 [facility] Last Admin: 02/21/24 08:13 Dose: 500 mg Multivitamins/Vitamin C (Multivitamin Tablet) 1 tab PO DAILY [facility] Last Admin: 02/21/24 08:13 Dose: 1 tab Nicotine (Nicotine 21 Mg Patch.Td24) 21 mg TRANSDERMA DAILY PRN PRN Reason: smoking cessation Nicotine Polacrilex (Nicotine Polacrilex 2 Mg Gum) 4 mg BUCCAL Q2H PRN PRN Reason: Nicotine Cravings Pat Own Med ( Tirzepatide [ Mounjaro] 2.5 Mg/0.5 Ml Pen Injector) 2.5 mg SUBCUT Fr@0900 [facility] Last Admin: 02/19/24 20:49 Dose: 2.5 mg Olanzapine (Olanzapine 5 Mg Tablet) 5 mg PO TID PRN PRN Reason: agitation Last Admin: 02/20/24 21:24 Dose: 5 mg Omeprazole (Omeprazole 40 Mg Capsule.Dr) 40 mg PO DAILY [facility] Last Admin: 02/21/24 08:13 Dose: 40 mg Prednisone (Prednisone 10 Mg Tablet) 10 mg PO DAILY [facility] Stop: 02/23/24 23:00 Last Admin: 02/21/24 08:13 Dose: 10 mg Quetiapine Fumarate (Quetiapine Fumarate 25 Mg Tablet) 25 mg PO TID PRN PRN Reason: mod anxiety Last Admin: 02/20/24 21:25 Dose: 25 mg Sacubitril/Valsartan (Sacubitril/Valsartan 49/51 1 Tab Tablet) 1 tab PO BID [facility]; Protocol Last Admin: 02/21/24 08:13 Dose: 1 tab Spironolactone (Spironolactone 25 Mg Tablet) 25 mg PO DAILY [facility]; Protocol Last Admin: 02/21/24 08:13 Dose: 25 mg Thiamine HCl (Thiamine Hcl 100 Mg Tablet) 100 mg PO DAILY [facility] Last Admin: 02/21/24 08:15 Dose: 100 mg Trazodone HCl (Trazodone Hcl 100 Mg Tablet) 100 mg PO BEDTIME [facility] Last Admin: 02/20/24 21:25 Dose: 100 mg Allergies Allergies Allergy/AdvReac Type Severity Reaction Status Date / Time No Known Allergies Allergy Verified 02/17/24 21:52 Assessment & Plan Assessment & Plan (1) Heart failure with reduced ejection fraction: Status: Acute Code(s): I50.20 - Unspecified systolic (congestive) heart failure (2) Cardiomyopathy: Status: Acute Code(s): I42.9 - Cardiomyopathy, unspecified (3) ARCELIA on CPAP: Status: Acute Code(s): G47.33 - Obstructive sleep apnea (adult) (pediatric); Z99.89 - Dependence on other enabling machines and devices (4) Asthma: Status: Acute Code(s): J45.909 - Unspecified asthma, uncomplicated (5) Cocaine abuse: Status: Acute Code(s): F14.10 - Cocaine abuse, uncomplicated (6) Alcohol use: Status: Acute Code(s): Z78.9 - Other specified health status (7) Depressive disorder: Status: Acute Code(s): F32.A - Depression, unspecified Plan continue prozac 20 for now. increase HS trazodone to 100. D/C singulair due to mental health concerns. consult cardiology re adding clonidine to anti-HTN regimen. continue ativan per CIWA protocol. taper after 24hr or more. discuss SUTP and/or meds for EtOH use. 02/19: Add POCs QIDHS and sliding scale and continue current management and treatment plan. Consider DC CIWA. 02/20: DC CIWA. Increase GBP to 200 mg TID. Lidocaine patch for lower back. Reason for continued inpatient stay Substantial Risk for: harm to self, inability to function and rapid decompensation Time Spent With Patient Time: Total time managing care of this patient today ____ minutes.
[2024-02-21 12:50] LABS: Glucose, Whole Blood 391 mg/dL (60-115)
[2024-02-21] MEDS: Gabapentin 100 MG CAPSULE 200 MG PO ×2 (15:07→21:57)
[2024-02-21 17:38] VITALS: BP 125/70; PULSE 89; RESP 16
[2024-02-21 17:38] LABS: Glucose, Whole Blood 383 mg/dL (60-115)
[2024-02-21] MEDS: QUEtiapine Fumarate 25 MG TABLET PO (18:01)
[2024-02-21] MEDS: hydrOXYzine HCL 50 MG TABLET PO (18:01)
[2024-02-21] MEDS: Ibuprofen 400 MG TABLET PO (18:01)
[2024-02-21 20:59] LABS: Glucose, Whole Blood 451 mg/dL (60-115)
--- NOTE | 2024-02-21 21:12 | PM.EVENT ---
Event Note Date of Service: 02/21/24 Event Note: RN reported hyperglycemia. Patient on SSI and po prednisone. Will add lantus. Time Spent With Patient Time: Total time managing care of this patient today ____ minutes.
[2024-02-21 21:45] VITALS: BP 118/76; PULSE 113; RESP 18; TEMP 37.1; O2SAT 97
[2024-02-21] MEDS: traZODone HCL 100 MG TABLET PO (21:56)
[2024-02-21] MEDS: LORazepam 1 MG TABLET PO (21:56)
[2024-02-21] MEDS: cloNIDine HCL 0.1 MG TABLET PO (21:56)
[2024-02-21] MEDS: Insulin Glargine,Hum.rec.anlog 100 UNIT/ML 10 ML VIAL 20 UNIT SUBCUT (21:57)
[2024-02-21] MEDS: OLANZapine 5 MG TABLET PO (21:57)
[2024-02-21 22:51] LABS: Glucose, Whole Blood 346 mg/dL (60-115)
[2024-02-21 23:26] VITALS: RESP 18
[2024-02-22] VITALS (9 sets, daily range): BP systolic 106–126; BP diastolic 60–73; PULSE 85–115; RESP 16–24; TEMP 36.7–36.8; O2SAT 93–96
[2024-02-22] MEDS: Multivitamin TABLET 1 TAB PO (08:38)
[2024-02-22] MEDS: Sacubitril/Valsartan 49/51 1 TAB TABLET PO ×2 (08:38→21:25)
[2024-02-22] MEDS: Furosemide 40 MG TABLET PO (08:39)
[2024-02-22] MEDS: carvediloL 25 MG TABLET 50 MG PO ×2 (08:39→16:42)
[2024-02-22] MEDS: Thiamine HCL 100 MG TABLET PO (08:39)
[2024-02-22] MEDS: Folic Acid 1 MG TABLET PO (08:40)
[2024-02-22] MEDS: Empagliflozin 25 MG TABLET PO (08:40)
[2024-02-22] MEDS: FLUoxetine HCl 20 MG CAPSULE PO (08:40)
[2024-02-22] MEDS: predniSONE 10 MG TABLET PO (08:40)
[2024-02-22] MEDS: Spironolactone 25 MG TABLET PO (08:40)
[2024-02-22] MEDS: Omeprazole 40 MG CAPSULE.DR PO (08:40)
[2024-02-22] MEDS: metFORMIN HCl ER 500 MG TAB.ER.24H PO (08:40)
[2024-02-22] MEDS: Lidocaine 4 % Patch ADH..PATCH 1 PATCH TRANSDERMA (08:41)
[2024-02-22 09:04] LABS: Glucose, Whole Blood 355 mg/dL (60-115)
[2024-02-22] MEDS: Insulin Lispro 100 UNIT/ML 3 ML VIAL SUBCUT ×7 (09:16→20:45)
[2024-02-22] MEDS: Gabapentin 100 MG CAPSULE 200 MG PO ×3 (10:51→21:24)
--- NOTE | 2024-02-22 11:20 | P.PNPSI_ITS ---
Subjective Subjective Date of Service: 02/22/24 Reason For Visit: depressed Interim History: Paitent with persistent high BS in spite of ISS and Mounjaro. Patient reports medications help with his depression and anxiety. Focused on PRN's including Ativan, Clonidine and Hydroxyzine and asking those not be changed. He is off CIWA. Denies SI/HI/VH. Review of Systems Review of Systems Constitutional : No Weight loss, No Fever, No Chills, No Night Sweats, No Fatigue, No Malaise ENT/Mouth : No Hearing loss, No Ear Pain, No Nasal Congestion, No Sinus Pain, No Hoarseness, No sore throat, No Rhinorrhea, No Swallowing Difficulty Eyes: No Eye Pain, No Swelling, No Redness, No Foreign Body, No Discharge, No Vision Changes Cardiovascular : No Chest Pain, No SOB, No Dyspnea on Exertion, No Orthopnea, No Edema, No Palpitations Respiratory : No Cough, No Sputum, No Wheezing, No Smoke Exposure, No Dyspnea Gastrointestinal : No Nausea, No Vomiting, No Diarrhea, No Constipation, No abdominal Pain, No Hematochezia, No Melena Genitourinary : no irregular bleeding, No Dysuria, No Urinary Frequency, No Hematuria, No Urinary Incontinence, No Urgency, No Flank Pain, No Urinary Flow Changes, No Hesitancy Musculoskeletal : No joint pain, No Myalgias, No Joint Swelling Skin : No Skin Lesions, No rash Neuro : No Weakness, No Numbness, No Paresthesias, No Loss of Consciousness, No Dizziness, No Headache Psych : No Anxiety/Panic, complaining of depression, vague SI Heme/Lymph: No Bruising, No Bleeding,No Lymphadenopathy Endocrine : No Polyuria, No Polydipsia, No Temperature Intolerance Constitutional: Reports no additional constitutional complaints Eyes: Reports no additional eye complaints Cardiovascular: Reports no additional cardiovascular complaints Respiratory: Reports no additional respiratory complaints Gastrointestinal: Reports no additional gastrointestinal complaints Genitourinary: Reports no additional male genitourinary complaints Musculoskeletal: Reports no additional musculoskeletal complaints Skin/Breast: Reports system reviewed and no additional complaints, except as docu Psychiatric: Reports no additional psychiatric complaints Hematologic/Lymphatic: Reports no additional hematologic/lymphatic complaints Mental Status Exam Mental Status Exam Narrative: obese, disheveled. cooperative. no PMA/PMR. speech nml rate, decr amount, nml loudness, nml tone, nml latency. thoughts linear and logical. affect constricted, normo-intense, non-labile. mood tiffany shitty. denies SI/SIBI/HI/AVH. Diagnostics Vital Signs (24Hr): Vital Signs - 24 hr 02/21/24 17:38 02/21/24 21:45 02/21/24 23:26 Temperature 98.8 F Pulse Rate 89 113 H Respiratory Rate 16 18 18 Blood Pressure 125/70 118/76 Pulse Oximetry 97 Oxygen Delivery Method Room Air 02/22/24 08:10 02/22/24 08:38 02/22/24 08:39 Temperature 98.1 F Pulse Rate 85 85 Respiratory Rate 16 Blood Pressure 114/60 114/60 114/60 Pulse Oximetry 93 Oxygen Delivery Method Room Air 02/22/24 08:39 02/22/24 08:40 Temperature Pulse Rate Respiratory Rate Blood Pressure 114/60 114/60 Pulse Oximetry Oxygen Delivery Method BMI result Body Mass Index 32.1 Labs 02/18/24 12:57 02/18/24 12:57 Labs: Laboratory Results - last 48 hr 02/20/24 02/20/24 02/20/24 12:45 17:44 20:33 POC Glucose 409 H* 356 H* 283 H 02/21/24 02/21/24 02/21/24 08:44 12:46 17:34 POC Glucose 265 H 391 H* 383 H* 02/21/24 02/21/24 02/22/24 20:54 22:46 08:52 POC Glucose 451 H* 346 H 355 H* Medications Medications Current Medications Acetaminophen (Acetaminophen 325 Mg Tablet) 650 mg PO Q6H PRN PRN Reason: Headache/Pain Mild Scale (1-3) Last Admin: 02/20/24 21:25 Dose: 650 mg Al Hydroxide/Mg Hydroxide (Magnesium Hydrox/Alum Hydrox 30 Ml Oral.Susp) 30 ml PO Q6H PRN PRN Reason: Heartburn/Nausea Carvedilol (Carvedilol 25 Mg Tablet) 50 mg PO BIDWM [facility]; Protocol Last Admin: 02/22/24 08:39 Dose: 50 mg Clonidine HCl (Clonidine Hcl 0.1 Mg Tablet) 0.1 mg PO Q4H PRN; Protocol PRN Reason: anxiety Last Admin: 02/21/24 21:56 Dose: 0.1 mg Docusate Sodium (Docusate Sodium 100 Mg Capsule) 100 mg PO DAILY PRN PRN Reason: constipation Empagliflozin (Empagliflozin 25 Mg Tablet) 25 mg PO DAILY [facility] Last Admin: 02/22/24 08:40 Dose: 25 mg Fluoxetine HCl (Fluoxetine Hcl 20 Mg Capsule) 20 mg PO DAILY [facility] Last Admin: 02/22/24 08:40 Dose: 20 mg Folic Acid (Folic Acid 1 Mg Tablet) 1 mg PO DAILY [facility] Last Admin: 02/22/24 08:40 Dose: 1 mg Furosemide (Furosemide 40 Mg Tablet) 40 mg PO DAILY [facility]; Protocol Last Admin: 02/22/24 08:39 Dose: 40 mg Gabapentin (Gabapentin 100 Mg Capsule) 200 mg PO TID [facility] Last Admin: 02/22/24 10:51 Dose: 200 mg Glucose (Glucose Gel 15 Gm Gel..Gram.) 15 gm PO Q15M PRN; Protocol PRN Reason: per Hypoglycemia Standing Ord. Glucose (Glucose Gel 15 Gm Gel..Gram.) 15 gm PO Q15M PRN; Protocol PRN Reason: per Hypoglycemia Standing Ord. Hydroxyzine HCl (Hydroxyzine Hcl 50 Mg Tablet) 50 mg PO Q6H PRN PRN Reason: Anxiety Last Admin: 02/21/24 18:01 Dose: 50 mg Dextrose (D10) 250 mls @ 750 mls/hr IV Q15M PRN; Protocol PRN Reason: per Hypoglycemia Standing Ord. Dextrose (D10) 250 mls @ 750 mls/hr IV Q15M PRN; Protocol PRN Reason: per Hypoglycemia Standing Ord. Ibuprofen (Ibuprofen 400 Mg Tablet) 400 mg PO Q6H PRN PRN Reason: Pain, Moderate(Pain Scale 4-6) Last Admin: 02/21/24 18:01 Dose: 400 mg Insulin Glargine (Insulin Glargine,Hum.Rec.Anlog 100 Unit/Ml 10 Ml Vial) 20 unit SUBCUT BEDTIME [facility] Last Admin: 02/21/24 21:57 Dose: 20 unit Insulin Human Lispro (Insulin Lispro 100 Unit/Ml 3 Ml Vial) 0 unit SUBCUT QIDACHS [facility]; Protocol Last Admin: 02/22/24 09:16 Dose: 10 unit Lidocaine (Lidocaine 4 % Patch Adh..Patch) 1 patch TRANSDERMA DAILY [facility]; Protocol Last Admin: 02/22/24 08:41 Dose: 1 patch Lorazepam (Lorazepam 1 Mg Tablet) 1 mg PO BID PRN PRN Reason: severe anxiety Magnesium Hydroxide (Milk Of Magnesia 30 Ml Oral.Susp) 30 ml PO DAILY PRN PRN Reason: Constipation Metformin HCl (Metformin Hcl Er 500 Mg Tab.Er.24h) 500 mg PO DAILY@0800 [facility] Last Admin: 02/22/24 08:40 Dose: 500 mg Multivitamins/Vitamin C (Multivitamin Tablet) 1 tab PO DAILY [facility] Last Admin: 02/22/24 08:38 Dose: 1 tab Nicotine (Nicotine 21 Mg Patch.Td24) 21 mg TRANSDERMA DAILY PRN PRN Reason: smoking cessation Nicotine Polacrilex (Nicotine Polacrilex 2 Mg Gum) 4 mg BUCCAL Q2H PRN PRN Reason: Nicotine Cravings Pat Own Med ( Tirzepatide [ Mounjaro] 2.5 Mg/0.5 Ml Pen Injector) 2.5 mg SUBCUT Fr@0900 [facility] Last Admin: 02/19/24 20:49 Dose: 2.5 mg Olanzapine (Olanzapine 5 Mg Tablet) 5 mg PO TID PRN PRN Reason: agitation Last Admin: 02/21/24 21:57 Dose: 5 mg Omeprazole (Omeprazole 40 Mg Capsule.Dr) 40 mg PO DAILY [facility] Last Admin: 02/22/24 08:40 Dose: 40 mg Prednisone (Prednisone 10 Mg Tablet) 10 mg PO DAILY [facility] Stop: 02/23/24 23:00 Last Admin: 02/22/24 08:40 Dose: 10 mg Quetiapine Fumarate (Quetiapine Fumarate 25 Mg Tablet) 25 mg PO TID PRN PRN Reason: mod anxiety Last Admin: 02/21/24 18:01 Dose: 25 mg Sacubitril/Valsartan (Sacubitril/Valsartan 49/51 1 Tab Tablet) 1 tab PO BID [facility]; Protocol Last Admin: 02/22/24 08:38 Dose: 1 tab Spironolactone (Spironolactone 25 Mg Tablet) 25 mg PO DAILY [facility]; Protocol Last Admin: 02/22/24 08:40 Dose: 25 mg Thiamine HCl (Thiamine Hcl 100 Mg Tablet) 100 mg PO DAILY [facility] Last Admin: 02/22/24 08:39 Dose: 100 mg Trazodone HCl (Trazodone Hcl 100 Mg Tablet) 100 mg PO BEDTIME [facility] Last Admin: 02/21/24 21:56 Dose: 100 mg Allergies Allergies Allergy/AdvReac Type Severity Reaction Status Date / Time No Known Allergies Allergy Verified 02/17/24 21:52 Assessment & Plan Assessment & Plan (1) Heart failure with reduced ejection fraction: Status: Acute Code(s): I50.20 - Unspecified systolic (congestive) heart failure (2) Cardiomyopathy: Status: Acute Code(s): I42.9 - Cardiomyopathy, unspecified (3) ARCELIA on CPAP: Status: Acute Code(s): G47.33 - Obstructive sleep apnea (adult) (pediatric); Z99.89 - Dependence on other enabling machines and devices (4) Asthma: Status: Acute Code(s): J45.909 - Unspecified asthma, uncomplicated (5) Cocaine abuse: Status: Acute Code(s): F14.10 - Cocaine abuse, uncomplicated (6) Alcohol use: Status: Acute Code(s): Z78.9 - Other specified health status (7) Depressive disorder: Status: Acute Code(s): F32.A - Depression, unspecified Plan continue prozac 20 for now. increase HS trazodone to 100. D/C singulair due to mental health concerns. consult cardiology re adding clonidine to anti-HTN regimen. continue ativan per CIWA protocol. taper after 24hr or more. discuss SUTP and/or meds for EtOH use. 02/19: Add POCs QIDHS and sliding scale and continue current management and treatment plan. Consider DC CIWA. 02/20: DC CIWA. Increase GBP to 200 mg TID. Lidocaine patch for lower back. 02/21: Ativan PRN severe anxiety only. DC CIWA Ativan. Asked for hospitalist input re persistently elevated BS. Continue current management and treatment plan. Reason for continued inpatient stay Substantial Risk for: harm to self, inability to function, rapid decompensation and med/psych decompensation Time Spent With Patient Time: Total time managing care of this patient today ____ minutes.
[2024-02-22 12:55] LABS: Glucose, Whole Blood 392 mg/dL (60-115)
[2024-02-22] MEDS: Acetaminophen 325 MG TABLET 650 MG PO (14:56)
[2024-02-22] MEDS: hydrOXYzine HCL 50 MG TABLET PO (16:46)
[2024-02-22] MEDS: Ibuprofen 400 MG TABLET PO ×2 (16:46→23:42)
[2024-02-22 18:07] LABS: Glucose, Whole Blood 280 mg/dL (60-115)
[2024-02-22] MEDS: QUEtiapine Fumarate 25 MG TABLET PO ×2 (18:44→23:45)
[2024-02-22 20:36] LABS: Glucose, Whole Blood 343 mg/dL (60-115)
[2024-02-22] MEDS: Insulin Glargine,Hum.rec.anlog 100 UNIT/ML 10 ML VIAL 20 UNIT SUBCUT (20:45)
[2024-02-22] MEDS: OLANZapine 5 MG TABLET PO (21:24)
[2024-02-22] MEDS: cloNIDine HCL 0.1 MG TABLET PO (21:24)
[2024-02-22] MEDS: LORazepam 1 MG TABLET PO (21:25)
[2024-02-22] MEDS: traZODone HCL 100 MG TABLET PO (21:25)
[2024-02-23 08:31] LABS: Glucose, Whole Blood 292 mg/dL (60-115)
[2024-02-23 09:15] VITALS: BP 130/75; PULSE 100; RESP 16; TEMP 36.6; O2SAT 92
[2024-02-23] MEDS: predniSONE 10 MG TABLET PO (09:18)
[2024-02-23] MEDS: Spironolactone 25 MG TABLET PO (09:19)
[2024-02-23] MEDS: FLUoxetine HCl 20 MG CAPSULE PO (09:19)
[2024-02-23] MEDS: Sacubitril/Valsartan 49/51 1 TAB TABLET PO ×2 (09:19→22:20)
[2024-02-23] MEDS: Multivitamin TABLET 1 TAB PO (09:19)
[2024-02-23] MEDS: Folic Acid 1 MG TABLET PO (09:19)
[2024-02-23] MEDS: Furosemide 40 MG TABLET PO (09:19)
[2024-02-23] MEDS: Empagliflozin 25 MG TABLET PO (09:19)
[2024-02-23] MEDS: metFORMIN HCl ER 500 MG TAB.ER.24H PO (09:20)
[2024-02-23] MEDS: carvediloL 25 MG TABLET 50 MG PO ×2 (09:20→16:24)
[2024-02-23] MEDS: Omeprazole 40 MG CAPSULE.DR PO (09:20)
[2024-02-23] MEDS: Gabapentin 100 MG CAPSULE 200 MG PO ×3 (09:20→22:21)
[2024-02-23] MEDS: Thiamine HCL 100 MG TABLET PO (09:20)
[2024-02-23] MEDS: Insulin Lispro 100 UNIT/ML 3 ML VIAL SUBCUT ×11 (09:21→21:17)
--- NOTE | 2024-02-23 11:43 | P.EN_ITS ---
Event Note Date of Service: 02/23/24 Event Note: Consult placed to hospitalist service for evaluation of severe headache and congestion. The patient reports facial pressure and nasal congestion with severe frontal headaches ongoing x2 weeks and worsening. Describes thick green/yellow sticky nasal secretions. No fevers, chills, minimal cough. No ST. Negative for covid, flu, rsv. CXR negative. On exam significant maxillary and frontal sinus pressure to palpation/percussion. We did discuss that his hyperglycemia could be contributing to his headaches but patient likely has a sinus infection that is primarily responsible for his headaches. He requests an MRI. Discussed with the patient that at this time an MRI is not medically indicated. Should his headaches not improve he should follow up outpatient with his PCP for furhter discussion on this. For now, recommend augmentin 875mg BID x 10 days, mucinex dm , and flonase. we also discussed his hyperglycemia. We discussed that he came in with an A1c of 7.5% with average glucose of 169. He is now running consistently elevated POC's high 200s, 300s, up to 450 today at lunch. I did check a BMP and patient does have KACY with pseudohyponatremia of 130. his creat is 1.57, was 0.9 4 days ago. No acidosis or anion gap. Discussed that high sugars can cause dehydration which is why his kidneys are injured. We discussed that while he does have unrestricted access to foods on the unit, it is important to make good choices consistent with diabetic diet as Im sure based on his A1c he is more compliant with this outside of the hospital. For now, we will continue with the 20 units lantus nightly. I am increasing his metformin (which should not increase risk of hypoglycemia) to 1000mg BID. After tonight will discontinue the standing 5 units admelog and can continue with ssi as needed for hyperglycemia. The patient expresses strong desire to make changes to his diet while on the unit which does increase risk of hypoglyemia given the significant changes we have needed to make to his diabetes medications due to noncompliance on the unit. Follow POC's closely. Hypoglycemic protocol in place if needed. Message hospitalist for further assistance for any hypo/hyperglycemia. Recheck BMP am. Time Spent With Patient Time: Total time managing care of this patient today ____ minutes.
[2024-02-23 12:52] LABS: Glucose, Whole Blood 439 mg/dL (60-115)
[2024-02-23] MEDS: LORazepam 1 MG TABLET PO ×2 (13:25→20:36)
[2024-02-23] MEDS: Ibuprofen 400 MG TABLET PO ×2 (13:25→20:01)
[2024-02-23 13:34] LABS: Influenza A PCR NEGATIVE (Negative); Influenza B PCR NEGATIVE (Negative); Resp Syncy Virus RNA Qual PCR NEGATIVE (Negative); SARS COV2 PCR INHOUSE NEGATIVE (Negative)
[2024-02-23 14:13] LABS: Anion Gap 15 (12-20); Blood Urea Nitrogen 22 mg/dL (9-16); Calcium 10.2 mg/dL (8.4-10.2); Carbon Dioxide 23 mmol/L (22-29); Chloride 96 mmol/L (96-108); Creatinine Clr Calc Pharmacy 79.5; Estimated Glomerular Filt Rate 49; Glucose Random 482 mg/dL (60-115); Potassium 4.4 mmol/L (3.3-5.1); Sodium 130 mmol/L (135-145)
[2024-02-23] MEDS: hydrOXYzine HCL 50 MG TABLET PO (15:08)
[2024-02-23] MEDS: Acetaminophen 325 MG TABLET 650 MG PO (15:08)
[2024-02-23] MEDS: 0.9 % Sodium Chloride 1,000 ML 999 ML IV (15:28)
[2024-02-23] MEDS: guaiFENesin DM 600/30 1 TAB TAB.ER.12H 2 TAB PO (15:42)
[2024-02-23 16:09] LABS: Glucose, Whole Blood 455 mg/dL (60-115)
[2024-02-23 16:22] VITALS: BP 120/71; PULSE 88
[2024-02-23] MEDS: metFORMIN HCl ER 500 MG TAB.ER.24H 1000 MG PO (16:26)
[2024-02-23] MEDS: cloNIDine HCL 0.1 MG TABLET PO (16:29)
[2024-02-23] MEDS: QUEtiapine Fumarate 25 MG TABLET PO ×2 (16:30→22:22)
[2024-02-23 17:58] LABS: Glucose, Whole Blood 371 mg/dL (60-115)
[2024-02-23 20:00] VITALS: BP 115/57; PULSE 106; RESP 18; TEMP 36.2; O2SAT 95
[2024-02-23] MEDS: Lidocaine 4 % Patch ADH..PATCH 1 PATCH TRANSDERMA (20:01)
[2024-02-23 21:14] LABS: Glucose, Whole Blood 226 mg/dL (60-115)
[2024-02-23] MEDS: Insulin Glargine,Hum.rec.anlog 100 UNIT/ML 10 ML VIAL 20 UNIT SUBCUT (21:17)
[2024-02-23 22:20] VITALS: BP 131/70
[2024-02-23] MEDS: cloNIDine HCL 0.2 MG TABLET PO (22:20)
[2024-02-23] MEDS: Amoxicillin/Potassium Clav 875 MG TABLET PO (22:21)
[2024-02-23] MEDS: traZODone HCL 100 MG TABLET PO (22:21)
[2024-02-23] MEDS: OLANZapine 5 MG TABLET PO (22:22)
--- NOTE | 2024-02-23 22:24 | P.PNPSI_ITS ---
Subjective Subjective Date of Service: 02/23/24 Reason For Visit: depressed Interim History: c/o severe DOUGLAS in forehead, productive cough. wants to D/C . asking for medical eval. up x2 in the night. agreeable to schedule clonidine 0.2 mg QHS. per staff, blunted, taking meds. dep/anx improved on meds. heavy PRN use. Mental Status Exam Mental Status Exam Narrative: obese, disheveled. cooperative. no PMA/PMR. speech nml rate, amount. incr loudness, nml tone, nml latency. thoughts linear and logical. affect constricted, normo-intense, non-labile. mood not assessed. no SI/SIBI/HI/AVH expressed. Diagnostics Vital Signs (24Hr): Vital Signs - 24 hr 02/22/24 23:38 02/23/24 09:15 02/23/24 16:22 Temperature 97.9 F Pulse Rate 100 88 Respiratory Rate 24 H 16 Blood Pressure 130/75 120/71 Pulse Oximetry 92 Oxygen Delivery Method Room Air 02/23/24 20:00 02/23/24 22:20 02/23/24 22:20 Temperature 97.1 F Pulse Rate 106 H Respiratory Rate 18 Blood Pressure 115/57 L 131/70 131/70 Pulse Oximetry 95 Oxygen Delivery Method Room Air BMI result Body Mass Index 32.1 Labs 02/18/24 12:57 02/23/24 13:35 Labs: Laboratory Results - last 48 hr 02/21/24 02/22/24 02/22/24 22:46 08:52 12:51 Sodium Potassium Chloride Carbon Dioxide Anion Gap BUN Creatinine Estim Creat Clear Calc Estimated GFR POC Glucose 346 H 355 H* 392 H* Random Glucose Calcium Influenza Type A (PCR) Influenza Type B (PCR) RSV RNA Qual (PCR) SARS-CoV-2 RNA (RT-PCR) 02/22/24 02/22/24 02/23/24 18:02 20:30 08:19 Sodium Potassium Chloride Carbon Dioxide Anion Gap BUN Creatinine Estim Creat Clear Calc Estimated GFR POC Glucose 280 H 343 H 292 H Random Glucose Calcium Influenza Type A (PCR) Influenza Type B (PCR) RSV RNA Qual (PCR) SARS-CoV-2 RNA (RT-PCR) 02/23/24 02/23/24 02/23/24 11:59 12:37 13:35 Sodium 130 L Potassium 4.4 D Chloride 96 Carbon Dioxide 23 Anion Gap 15 BUN 22 H Creatinine 1.52 H Estim Creat Clear Calc 79.5 Estimated GFR 49 POC Glucose 439 H* Random Glucose 482 H* Calcium 10.2 D Influenza Type A (PCR) NEGATIVE Influenza Type B (PCR) NEGATIVE RSV RNA Qual (PCR) NEGATIVE SARS-CoV-2 RNA (RT-PCR) NEGATIVE 02/23/24 02/23/24 02/23/24 16:04 17:54 21:09 Sodium Potassium Chloride Carbon Dioxide Anion Gap BUN Creatinine Estim Creat Clear Calc Estimated GFR POC Glucose 455 H* 371 H* 226 H Random Glucose Calcium Influenza Type A (PCR) Influenza Type B (PCR) RSV RNA Qual (PCR) SARS-CoV-2 RNA (RT-PCR) Imaging Radiology Impressions: ITS Impressions Chest X-Ray 02/23/24 12:56 IMPRESSION: No active disease. Electronically signed by: Faisal Pham MD 02/23/2024 02:12 PM EDT Medications Medications Current Medications Acetaminophen (Acetaminophen 325 Mg Tablet) 650 mg PO Q6H PRN PRN Reason: Headache/Pain Mild Scale (1-3) Last Admin: 02/23/24 15:08 Dose: 650 mg Al Hydroxide/Mg Hydroxide (Magnesium Hydrox/Alum Hydrox 30 Ml Oral.Susp) 30 ml PO Q6H PRN PRN Reason: Heartburn/Nausea Amoxicillin/Clavulanate Potassium (Amoxicillin/Potassium Clav 875 Mg Tablet) 875 mg PO BID [facility] Stop: 03/04/24 09:01 Last Admin: 02/23/24 22:21 Dose: 875 mg Carvedilol (Carvedilol 25 Mg Tablet) 50 mg PO BIDWM [facility]; Protocol Last Admin: 02/23/24 16:24 Dose: 50 mg Clonidine HCl (Clonidine Hcl 0.1 Mg Tablet) 0.1 mg PO Q4H PRN; Protocol PRN Reason: anxiety Last Admin: 02/23/24 16:29 Dose: 0.1 mg Clonidine HCl (Clonidine Hcl 0.2 Mg Tablet) 0.2 mg PO DAILY@2200 [facility]; Protocol Last Admin: 02/23/24 22:20 Dose: 0.2 mg Docusate Sodium (Docusate Sodium 100 Mg Capsule) 100 mg PO DAILY PRN PRN Reason: constipation Empagliflozin (Empagliflozin 25 Mg Tablet) 25 mg PO DAILY [facility] Last Admin: 02/23/24 09:19 Dose: 25 mg Fluoxetine HCl (Fluoxetine Hcl 20 Mg Capsule) 20 mg PO DAILY [facility] Last Admin: 02/23/24 09:19 Dose: 20 mg Fluticasone Propionate (Fluticasone Propionate Nasal 16 Gm [place]) 2 spray NOSTRIL-B DAILY [facility] Last Admin: 02/23/24 15:46 Dose: Not Given Folic Acid (Folic Acid 1 Mg Tablet) 1 mg PO DAILY [facility] Last Admin: 02/23/24 09:19 Dose: 1 mg Furosemide (Furosemide 40 Mg Tablet) 40 mg PO DAILY [facility]; Protocol Last Admin: 02/23/24 09:19 Dose: 40 mg Gabapentin (Gabapentin 100 Mg Capsule) 200 mg PO TID [facility] Last Admin: 02/23/24 22:21 Dose: 200 mg Glucose (Glucose Gel 15 Gm Gel..Gram.) 15 gm PO Q15M PRN; Protocol PRN Reason: per Hypoglycemia Standing Ord. Glucose (Glucose Gel 15 Gm Gel..Gram.) 15 gm PO Q15M PRN; Protocol PRN Reason: per Hypoglycemia Standing Ord. Guaifenesin/Dextromethorphan (Guaifenesin Dm 600/30 1 Tab Tab.Er.12h) 2 tab PO BID PRN PRN Reason: sinus congestion Last Admin: 02/23/24 15:42 Dose: 2 tab Hydroxyzine HCl (Hydroxyzine Hcl 50 Mg Tablet) 50 mg PO Q6H PRN PRN Reason: Anxiety Last Admin: 02/23/24 15:08 Dose: 50 mg Dextrose (D10) 250 mls @ 750 mls/hr IV Q15M PRN; Protocol PRN Reason: per Hypoglycemia Standing Ord. Dextrose (D10) 250 mls @ 750 mls/hr IV Q15M PRN; Protocol PRN Reason: per Hypoglycemia Standing Ord. Ibuprofen (Ibuprofen 400 Mg Tablet) 400 mg PO Q6H PRN PRN Reason: Pain, Moderate(Pain Scale 4-6) Last Admin: 02/23/24 20:01 Dose: 400 mg Insulin Glargine (Insulin Glargine,Hum.Rec.Anlog 100 Unit/Ml 10 Ml Vial) 20 unit SUBCUT BEDTIME [facility] Last Admin: 02/23/24 21:17 Dose: 20 unit Insulin Human Lispro (Insulin Lispro 100 Unit/Ml 3 Ml Vial) 0 unit SUBCUT QIDACHS [facility]; Protocol Last Admin: 02/23/24 21:17 Dose: 4 unit Insulin Human Lispro (Insulin Lispro 100 Unit/Ml 3 Ml Vial) 5 unit SUBCUT QIDACHS [facility] Stop: 02/24/24 00:00 Last Admin: 02/23/24 21:17 Dose: 5 unit Lidocaine (Lidocaine 4 % Patch Adh..Patch) 1 patch TRANSDERMA DAILY [facility]; Protocol Last Admin: 02/23/24 20:01 Dose: 1 patch Lorazepam (Lorazepam 1 Mg Tablet) 1 mg PO BID PRN PRN Reason: severe anxiety Last Admin: 02/23/24 20:36 Dose: 1 mg Magnesium Hydroxide (Milk Of Magnesia 30 Ml Oral.Susp) 30 ml PO DAILY PRN PRN Reason: Constipation Metformin HCl (Metformin Hcl Er 500 Mg Tab.Er.24h) 1,000 mg PO BIDWM [facility] Last Admin: 02/23/24 16:26 Dose: 1,000 mg Multivitamins/Vitamin C (Multivitamin Tablet) 1 tab PO DAILY [facility] Last Admin: 02/23/24 09:19 Dose: 1 tab Nicotine (Nicotine 21 Mg Patch.Td24) 21 mg TRANSDERMA DAILY PRN PRN Reason: smoking cessation Nicotine Polacrilex (Nicotine Polacrilex 2 Mg Gum) 4 mg BUCCAL Q2H PRN PRN Reason: Nicotine Cravings [employer] Own Med ( Tirzepatide [ Mounjaro] 2.5 Mg/0.5 Ml Pen Injector) 2.5 mg SUBCUT Fr@0900 [facility] Last Admin: 02/19/24 20:49 Dose: 2.5 mg Olanzapine (Olanzapine 5 Mg Tablet) 5 mg PO TID PRN PRN Reason: agitation Last Admin: 02/23/24 22:22 Dose: 5 mg Omeprazole (Omeprazole 40 Mg Capsule.Dr) 40 mg PO DAILY [facility] Last Admin: 02/23/24 09:20 Dose: 40 mg Prednisone (Prednisone 10 Mg Tablet) 10 mg PO DAILY [facility] Stop: 02/23/24 23:00 Last Admin: 02/23/24 09:18 Dose: 10 mg Quetiapine Fumarate (Quetiapine Fumarate 25 Mg Tablet) 25 mg PO TID PRN PRN Reason: mod anxiety Last Admin: 02/23/24 22:22 Dose: 25 mg Sacubitril/Valsartan (Sacubitril/Valsartan 49/51 1 Tab Tablet) 1 tab PO BID [facility]; Protocol Last Admin: 02/23/24 22:20 Dose: 1 tab Spironolactone (Spironolactone 25 Mg Tablet) 25 mg PO DAILY [facility]; Protocol Last Admin: 02/23/24 09:19 Dose: 25 mg Thiamine HCl (Thiamine Hcl 100 Mg Tablet) 100 mg PO DAILY [facility] Last Admin: 02/23/24 09:20 Dose: 100 mg Trazodone HCl (Trazodone Hcl 100 Mg Tablet) 100 mg PO BEDTIME [facility] Last Admin: 02/23/24 22:21 Dose: 100 mg Allergies Allergies Allergy/AdvReac Type Severity Reaction Status Date / Time No Known Allergies Allergy Verified 02/17/24 21:52 Assessment & Plan Assessment & Plan (1) Heart failure with reduced ejection fraction: Status: Acute Code(s): I50.20 - Unspecified systolic (congestive) heart failure (2) Cardiomyopathy: Status: Acute Code(s): I42.9 - Cardiomyopathy, unspecified (3) ARCELIA on CPAP: Status: Acute Code(s): G47.33 - Obstructive sleep apnea (adult) (pediatric); Z99.89 - Dependence on other enabling machines and devices (4) Asthma: Status: Acute Code(s): J45.909 - Unspecified asthma, uncomplicated (5) Cocaine abuse: Status: Acute Code(s): F14.10 - Cocaine abuse, uncomplicated (6) Alcohol use: Status: Acute Code(s): Z78.9 - Other specified health status (7) Depressive disorder: Status: Acute Code(s): F32.A - Depression, unspecified Plan continue prozac 20 for now. increase HS trazodone to 100. D/C singulair due to mental health concerns. consult cardiology re adding clonidine to anti-HTN regimen. continue ativan per [facility] protocol. taper after 24hr or more. discuss SUTP and/or meds for EtOH use. 02/19: Add POCs QIDHS and sliding scale and continue current management and treatment plan. Consider DC [facility]. 02/20: DC [facility]. Increase GBP to 200 mg TID. Lidocaine patch for lower back. 02/21: Ativan PRN severe anxiety only. DC [facility] Ativan. Asked for hospitalist input re persistently elevated BS. Continue current management and treatment plan. 02/22: add clonidine 0.2 mg QHS for sleep/nightmares. long discussion re rationale for not continuing ativan at discharge. medical eval reviewed, Tx for sinus infection and changes in DM regimen noted. Reason for continued inpatient stay Substantial Risk for: inability to function and rapid decompensation Time Spent With Patient Time: Total time managing care of this patient today ___35_ minutes.
[2024-02-23 22:54] LABS: Glucose, Whole Blood 238 mg/dL (60-115)
[2024-02-23 23:35] VITALS: PULSE 88; RESP 24; O2SAT 97
[2024-02-24] MEDS: Ibuprofen 400 MG TABLET PO ×3 (02:16→20:36)
[2024-02-24] MEDS: LORazepam 1 MG TABLET PO ×2 (02:16→15:29)
[2024-02-24] MEDS: Acetaminophen 325 MG TABLET 650 MG PO ×2 (02:16→20:35)
[2024-02-24 02:21] VITALS: BP 126/72
[2024-02-24] MEDS: cloNIDine HCL 0.1 MG TABLET PO ×2 (02:21→12:03)
[2024-02-24 08:00] VITALS: BP 100/54; PULSE 81; RESP 14; TEMP 36.3; O2SAT 91
[2024-02-24 08:29] LABS: Anion Gap 13 (12-20); Blood Urea Nitrogen 23 mg/dL (9-16); Calcium 9.4 mg/dL (8.4-10.2); Carbon Dioxide 25 mmol/L (22-29); Chloride 101 mmol/L (96-108); Creatinine Clr Calc Pharmacy 90.9; Estimated Glomerular Filt Rate 57; Glucose Random 446 mg/dL (60-115); Potassium 4.3 mmol/L (3.3-5.1); Sodium 135 mmol/L (135-145)
[2024-02-24 08:31] LABS: Glucose, Whole Blood 440 mg/dL (60-115)
[2024-02-24] MEDS: Amoxicillin/Potassium Clav 875 MG TABLET PO ×2 (08:40→20:35)
[2024-02-24] MEDS: Gabapentin 100 MG CAPSULE 200 MG PO ×3 (08:40→20:36)
[2024-02-24] MEDS: Sacubitril/Valsartan 49/51 1 TAB TABLET PO ×2 (08:40→20:38)
[2024-02-24] MEDS: Omeprazole 40 MG CAPSULE.DR PO (08:40)
[2024-02-24] MEDS: Multivitamin TABLET 1 TAB PO (08:40)
[2024-02-24] MEDS: Spironolactone 25 MG TABLET PO (08:40)
[2024-02-24] MEDS: Furosemide 40 MG TABLET PO (08:40)
[2024-02-24] MEDS: FLUoxetine HCl 20 MG CAPSULE PO (08:40)
[2024-02-24] MEDS: carvediloL 25 MG TABLET 50 MG PO ×2 (08:41→17:32)
[2024-02-24] MEDS: Folic Acid 1 MG TABLET PO (08:41)
[2024-02-24] MEDS: Thiamine HCL 100 MG TABLET PO (08:41)
[2024-02-24] MEDS: Empagliflozin 25 MG TABLET PO (08:41)
[2024-02-24] MEDS: metFORMIN HCl ER 500 MG TAB.ER.24H 1000 MG PO ×2 (08:41→17:32)
[2024-02-24] MEDS: Insulin Lispro 100 UNIT/ML 3 ML VIAL SUBCUT ×4 (08:45→20:39)
[2024-02-24 12:03] VITALS: BP 114/73
[2024-02-24] MEDS: hydrOXYzine HCL 50 MG TABLET PO ×2 (12:03→20:34)
[2024-02-24 12:39] LABS: Glucose, Whole Blood 472 mg/dL (60-115)
--- NOTE | 2024-02-24 13:21 | PM.PSYDC ---
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 BEDTIME 30 Days Qty: 6 0RF metformin 500 mg Tablet Extended Release 24 Hr 1,000 mg PO BIDWM 30 Days Qty: 120 0RF lidocaine [Lidocaine Pain Relief] 4 % Adhesive Patch,Medicated 1 patch transdermal DAILY 30 Days Qty: 30 0RF Protocol: Apply to: Apply to: lower back Mucus DM 30-600 mg Tablet Extended Release 12 Hr 2 tab PO BID PRN (Reason: sinus congestion) 10 Days Qty: 40 0RF multivitamin [Daily-Santi] Tablet 1 tab PO DAILY 30 Days Qty: 30 0RF folic acid 1 mg Tablet 1 mg PO DAILY 30 Days Qty: 30 0RF lorazepam 1 mg Tablet 1 mg PO BID PRN (Reason: severe anxiety) 7 Days Qty: 14 0RF amoxicillin-pot clavulanate 875-125 mg Tablet 1 tab PO BID 10 Days Qty: 20 0RF thiamine mononitrate (vit B1) 100 mg Tablet 100 mg PO DAILY 30 Days Qty: 30 0RF Continued carvedilol 25 mg tablet 50 mg PO BID spironolactone 25 mg tablet 25 mg PO DAILY furosemide 40 mg tablet 40 mg PO DAILY 30 Days Qty: 30 0RF omeprazole 40 mg capsule,delayed release(DR/EC) 40 mg PO DAILY 30 Days Qty: 30 0RF docusate sodium [Colace] 100 mg capsule 100 mg PO DAILY PRN (Reason: constipation) 30 Days Qty: 30 0RF albuterol sulfate [Ventolin HFA] 90 mcg/actuation HFA aerosol inhaler 2 puff INHALATION Q4-6H 30 Days Qty: 6.7 0RF Jardiance 25 mg tablet 25 mg PO DAILY 30 Days Qty: 30 0RF Entresto 49-51 mg tablet 1 tab PO BID 30 Days Qty: 60 0RF Mounjaro 2.5 mg/0.5 mL pen injector 2.5 mg subcut QWEEK 30 Days Qty: 2.5 0RF Changed fluoxetine 20 mg capsule 40 mg PO DAILY 30 Days Qty: 60 0RF Discontinued montelukast 10 mg tablet 10 mg PO DAILY albuterol sulfate [ProAir HFA] 90 mcg/actuation HFA aerosol inhaler 2 puff inhalation Q6H PRN (Reason: Wheezing) metformin 500 mg tablet extended release 24 hr 500 mg PO DAILY Discharge Orders: Discharge Order (Routine); Ordered 02/25/24 Ordered By: Kb Oneil Diet: Diabetic diet Activity on Discharge: As tolerated Stand Alone Forms: Patient Portal Discharge page, Community Support Print Language: Estonian Care Plan Goals: remain safe, stable, and sober in the outpatient treatment setting. Health Concerns: obesity umbilical hernia Diabetes GERD cardiomyopathy CHF Plan of Treatment: take medications as prescribed, attend appointments as scheduled Assessment: not at imminent risk of harm to self or others Discharge Date/Time: 02/25/24 11:51
[2024-02-24] MEDS: QUEtiapine Fumarate 25 MG TABLET PO ×2 (15:29→20:37)
[2024-02-24 17:15] LABS: Glucose, Whole Blood 311 mg/dL (60-115)
[2024-02-24 17:26] VITALS: BP 108/57; PULSE 80; RESP 16; TEMP 36.4; O2SAT 96
[2024-02-24 17:39] LABS: Glucose, Whole Blood 310 mg/dL (60-115)
[2024-02-24 20:00] VITALS: BP 133/77; PULSE 94; RESP 18; TEMP 36.4; O2SAT 98
[2024-02-24 20:30] LABS: Glucose, Whole Blood 356 mg/dL (60-115)
[2024-02-24] MEDS: traZODone HCL 100 MG TABLET PO (20:34)
[2024-02-24] MEDS: OLANZapine 5 MG TABLET PO (20:35)
[2024-02-24] MEDS: Insulin Glargine,Hum.rec.anlog 100 UNIT/ML 10 ML VIAL 20 UNIT SUBCUT (20:38)
[2024-02-24] MEDS: cloNIDine HCL 0.2 MG TABLET PO (20:38)
[2024-02-24] MEDS: guaiFENesin DM 600/30 1 TAB TAB.ER.12H 2 TAB PO (20:42)
[2024-02-25] MEDS: LORazepam 1 MG TABLET PO ×2 (00:04→11:43)
[2024-02-25 07:40] VITALS: BP 104/57; PULSE 90; RESP 16; TEMP 36.2; O2SAT 97
[2024-02-25 08:43] LABS: Glucose, Whole Blood 414 mg/dL (60-115)
[2024-02-25 09:00] LABS: Creatinine Clr Calc Pharmacy 84.6; Estimated Glomerular Filt Rate 53
[2024-02-25] MEDS: Thiamine HCL 100 MG TABLET PO (09:03)
[2024-02-25] MEDS: Sacubitril/Valsartan 49/51 1 TAB TABLET PO (09:04)
[2024-02-25] MEDS: Folic Acid 1 MG TABLET PO (09:04)
[2024-02-25] MEDS: FLUoxetine HCl 20 MG CAPSULE PO (09:04)
[2024-02-25] MEDS: Furosemide 40 MG TABLET PO (09:04)
[2024-02-25] MEDS: Multivitamin TABLET 1 TAB PO (09:04)
[2024-02-25] MEDS: Gabapentin 100 MG CAPSULE 200 MG PO (09:04)
[2024-02-25] MEDS: Spironolactone 25 MG TABLET PO (09:05)
[2024-02-25] MEDS: Insulin Lispro 100 UNIT/ML 3 ML VIAL SUBCUT (09:05)
[2024-02-25] MEDS: Omeprazole 40 MG CAPSULE.DR PO (09:05)
[2024-02-25] MEDS: Amoxicillin/Potassium Clav 875 MG TABLET PO (09:05)
[2024-02-25] MEDS: metFORMIN HCl ER 500 MG TAB.ER.24H 1000 MG PO (09:05)
[2024-02-25] MEDS: Empagliflozin 25 MG TABLET PO (09:05)
[2024-02-25] MEDS: Fluticasone Propionate Nasal 16 GM SPRAY 2 SPRAY NOSTRIL-B (09:07)
[2024-02-25 09:09] VITALS: BP 104/57; PULSE 90
[2024-02-25] MEDS: Lidocaine 4 % Patch ADH..PATCH 1 PATCH TRANSDERMA (11:40)
[2024-02-25 11:43] VITALS: BP 149/81
[2024-02-25] MEDS: Ibuprofen 400 MG TABLET PO (11:43)
[2024-02-25] MEDS: cloNIDine HCL 0.1 MG TABLET PO (11:43)
== END 2024-02-25 11:51 | disposition home or self-care (01) | DRG 754 ==
LOC: HO.ED 02-18 14:12 → HO.PM5 02-18 14:16 → HO.PADLT16 02-18 14:29
PROVIDERS: Physician Assistant; Admitting Provider Psychiatry & Neurology Psychiatry; Emergency Provider Emergency Medicine; PCP Internal Medicine; Visit Provider Psychiatry & Neurology Psychiatry
DX: F32.A Depression, unspecified (principal); I42.8 Other cardiomyopathies; N17.9 Acute kidney failure, unspecified; R45.851 Suicidal ideations; I50.22 Chronic systolic (congestive) heart failure; F10.920 Alcohol use, unspecified with intoxication, uncomplicated; J32.9 Chronic sinusitis, unspecified; F14.10 Cocaine abuse, uncomplicated; G47.33 Obstructive sleep apnea (adult) (pediatric); J45.909 Unspecified asthma, uncomplicated; Z20.822 Contact with and (suspected) exposure to COVID-19; Y90.6 Blood alcohol level of 120-199 mg/100 ml; Z79.4 Long term (current) use of insulin; Z79.899 Other long term (current) drug therapy
CPT/HCPCS: 0241U; 36415; 71045; 80048; 80053; 80061; 80307; 81001; 82565; 82947; 83036; 84443; 85025; 92950; 93005; 94660; 99285; S9485

== ENCOUNTER → 2024-02-18 14:06 | Outpatient (BNV) | payer OTHER, SELFPAY | PROVIDERS: Admitting Provider Psychiatry & Neurology Psychiatry; Emergency Provider Emergency Medicine; PCP Internal Medicine; Visit Provider Internal Medicine Cardiovascular Disease | DX: I50.20 Unspecified systolic (congestive) heart failure (principal) | CPT/HCPCS: 99222 ==

== ENCOUNTER → 2024-02-18 14:06 | Outpatient (BNV) | payer OTHER, SELFPAY | PROVIDERS: Admitting Provider Psychiatry & Neurology Psychiatry; Emergency Provider Emergency Medicine; PCP Internal Medicine; Visit Provider Psychiatry & Neurology Psychiatry | DX: F32.2 Major depressive disorder, single episode, severe without psychotic features (principal); F14.10 Cocaine abuse, uncomplicated; I50.20 Unspecified systolic (congestive) heart failure; I42.9 Cardiomyopathy, unspecified | CPT/HCPCS: 99231; 99232; 99233; 99239 ==